=== PATIENT | male | born 1945 | race Caucasian/White ===

== ENCOUNTER → 2024-07-04 16:30 | Emergency (ER) | payer MEDICARE, OTHER, SELFPAY ==
[2024-07-04 16:32] VITALS: BP 104/68
[2024-07-04 17:01] LABS: % Basophils 0.5 % (0-2); % Immature Granulocytes 0.2 % (0-0.5); % Lymphocytes 23.6 % (20.5-51.1); % Neutrophils 61.7 % (42.2-75.2); Absolute Eosinophils 0.3 10^3/uL (0-0.7); Absolute Lymphocytes 1.5 10^3/uL (1.2-3.4); Absolute Monocytes 0.6 10^3/uL (0.1-0.6); Absolute Neutrophils 3.9 10^3/uL (1.4-6.5); Hematocrit 39.4 % (39.0-52.0); Hemoglobin 12.9 g/dL (13.0-18.0); Mean Corp Hgb Conc. 32.7 g/dL (33.0-37.0); Mean Corpuscular Volume 100.8 fL (80.0-94.0); Mean Platelet Volume 9.6 fL (7.4-10.4); Nucleated Red Blood Cells % 0 % (-); Platelet Count 199 10^3/uL (130-400); Red Blood Cell Count 3.91 10^6/uL (4.70-6.10); Red Cell Dist. Width 13.2 % (11.5-14.5); White Blood Cell Count 6.2 10^3/uL (4.8-10.8)
[2024-07-04 17:28] LABS: ALT (SGPT) 30 U/L (0-50); AST (SGOT) 57 U/L (17-59); Albumin 3.8 g/dl (3.5-5.0); Alkaline Phosphatase 68 U/L (38-126); Blood Urea Nitrogen 19 mg/dl (9-20); Calcium 9.3 mg/dl (8.4-10.2); Carbon Dioxide 27 mmol/L (22-30); Chloride 103 mmol/L (98-107); Glucose 101 mg/dl (70-99); Sodium 139 mmol/L (135-145); Total Bilirubin 1.6 mg/dl (0.2-1.3); Total Protein 6.2 g/dl (6.3-8.2); eGFR > 60.00
== END | disposition left against medical advice (07) ==
LOC: EMR 16:30
PROVIDERS: EMERGENCY PHYSICIAN Emergency Medicine
DX: R53.1 Weakness (principal); R60.0 Localized edema; Z53.21 Procedure and treatment not carried out due to patient leaving prior to being seen by health care provider; F03.90 Unspecified dementia, unspecified severity, without behavioral disturbance, psychotic disturbance, mood disturbance, and anxiety; R29.6 Repeated falls
CPT/HCPCS: 99281; 80053; 85025

== ENCOUNTER 2024-12-19 11:58 | Inpatient (IN) | payer MEDICARE, OTHER, SELFPAY ==
[2024-12-17 19:22] VITALS: BP 115/70
[2024-12-17 19:40] VITALS: BMI 25.0
--- NOTE | 2024-12-17 19:48 | EDRN ---
Pt says he is here because his sent him. Pt does not know why he is here. Pt knows he is in the hospital but does not know month/year. Pt denies pain, feeling ill. Pt offers no complaints.
--- NOTE | 2024-12-17 19:52 | ED.GENMED ---
History of Present Illness
General
Chief Complaint: Urinary Symptoms
Time Seen by Provider: 12/17/24 19:39
History of Present Illness
History of Present Illness:
Patient is a 79-year-old man with history dementia, atrial fibrillation, hypertension, hyperlipidemia presenting to the emergency department with weakness urinary incontinence. Patient unable to provide any history given his dementia. I did
attempt to call patient's however unable to be reached. Per medics the call was for increased weakness and urinary incontinence and necrosis behind the right ear.
Past History
Past History
ED Past Medical History: Arrthythmia (Atrial fib), HTN, Hypercholesterolemia and Other (Chronic back pain, hypertension, hyperlipidemia, spinal stenosis,)
ED Past Surgical History: Orthopedic (Multiple back surgeries)
Social History
Tobacco: Non-smoker
Alcohol: Daily (bourbon 2 shots)
Drug: None
Personal:
Living: with family
Family History
Family History: Negative Diabetes, Hypertension or Early CAD
Phy Exam
Physical Exam
Physical Exam:
GENERAL: in no acute distress
HEENT: Right ear helix with erythema, necrosis and purulent drainage and tenderness posteriorly above the mastoid, extraocular movements intact, moist oral mucosa
NECK: normal inspection
RESPIRATORY: no respiratory distress, clear to auscultation bilaterally
CARDIOVASCULAR: regular rate and rhythm
ABDOMEN/: soft, non-distended, non-tender to palpation, no rebound or guarding
EXTREMITIES: non-tender, no edema/swelling
NEUROLOGIC: awake and alert, oriented x 1, moves all extremities
SKIN: warm
Course
Orders/Labs/Results
Orders:
Orders
12/17/24 19:49
CT Temporal-iac W/ Iv Contrast Urgent
Comment:
Reason For Exam: necrotic helix with tenderness to mastoid bone
12/17/24 19:52
Electrocardiogram (*1) Urgent
Reason for Study: Fatigue / Weakness
EKG- Treatment ONCE
12/17/24 19:59
Complete Blood Count/With Diff Urgent
Comprehensive Metabolic Panel Urgent
12/17/24 20:23
Urinalysis Reflex To Culture Urgent
Date Specimen was Collected: 12/17/24
Time Specimen was Collected: 20:22
Urine Microscopic Reflex Cult Urgent
Urine Culture Urgent
PARRISH Source: U
Specimen Description:
Date Specimen was Collected: 12/17/24
Time Specimen was Collected: 20:22
12/17/24 22:29
Piperacillin/Tazo 4.5 Gram [Zosyn] 4.5 gram in 100 ml IV NOW
12/17/24 23:00
Flush (0.9% Sodium Chloride) [Flush (Nss)] See Dose Instructions IV PER PROTOCOL
Abnormal Lab Results
12/17/24 12/17/24
19:59 20:23
RBC 4.01 L 10^6/uL
(4.70-6.10)
MCV 99.0 H fL
(80.0-94.0)
MCH 33.9 H pg
(27.0-31.0)
Absolute Monos (auto) 0.7 H 10^3/uL
(0.1-0.6)
Total Protein 6.0 L g/dl
(6.3-8.2)
Urine Nitrite (Reflex) Positive A
(Negative)
Leukocyte Esterase Rfl 1+ A
(Negative)
Urine WBC (Reflex) 11-15 A /HPF
(0-5)
Urine Bacteria (Reflex) Many A
(Negative)
12/17/24 19:59
12/17/24 19:59
Vital Signs
Initial and Last Documented VS:
Initial Vital Signs
Temp Pulse Resp BP Pulse Ox
98.2 F 70 18 115/70 100
12/17/24 19:22 12/17/24 19:22 12/17/24 19:22 12/17/24 19:22 12/17/24 19:22
Last Documented Vital Signs
Temp Pulse Resp BP Pulse Ox
98.2 F 61 12 119/82 100
12/17/24 19:22 12/17/24 22:00 12/17/24 22:00 12/17/24 22:00 12/17/24 19:22
MDM/Problems Addressed
Differential Diagnosis Includes:
Patient is a 79-year-old male with history of dementia presenting to the emergency department weakness urinary incontinence and necrotic right ear. Vitals are notable for being afebrile. On exam patient does have necrosis and purulent drainage of
the helix of the right ear with some tenderness to the just above the mastoid. Abdomen soft benign nontender. He is not have any neurodeficits. Differential consists of malignant otitis externa, mastoiditis, malginancy uti, metabolic derangments.
Will obtain blood work EKG urinalysis and CT scan IAC. Initially placed with IV contrast after talking to radiology we can do it without.
*Critical Care Note
Total Time (30-74mins, 75-104mins- exclusive of procedures): Not Applicable
Update Note
Update Note:
Urine does appear infected. Patient does not have a white count and is afebrile. CT scan preliminary noted.
Will give zosyn. Discussed with hospitalist who excepted patient to their service. Discussed wt ENT who states likely malignancy and will see tomorrow in consult.
ED Attending Note
-
Portions of this chart may have been created with voice recognition software.� Occasional wrong word or��sound alike� substitutions may have occurred due to the inherent limitations of voice recognition software.
Discharge Plan
Departure
Patient Disposition: Admit
Date of Disposition: 12/17/24
Time of Disposition: 22:33
Presentation/result/management discussed w/ accepting MD/DO: Hospitalist
Discharge Problem:
Acute malignant otitis externa of right ear, Acute UTI
Prescriptions:
No Action
Eliquis 5 MG tablet
5 mg PO BID
metoprolol succinate 50 MG tablet extended release 24 hr
100 mg PO DAILY
simvastatin 80 MG tablet
80 mg PO DAILY
furosemide 20 MG tablet
20 mg PO DAILY
Centrum Silver Men 300-600-300 mcg Tablet
1 tab PO DAILY
tramadol 50 mg Tablet
100 mg PO .Q4-6HPRN PRN (Reason: moderate pain)
Rx Instructions:
take this OR vicodin
oxycodone-acetaminophen [Percocet] 5-325 mg Tablet
1 tab PO DAILYPRN PRN (Reason: severe pain)
cyanocobalamin (vitamin B-12) 1,000 MCG tablet
1,000 mcg PO DAILY
hydrocodone-acetaminophen 5-300 mg Tablet
1 - 2 tab PO Q4HPRN PRN (Reason: pain)
naproxen sodium [Aleve] 220 mg Tablet
440 mg PO DAILYPRN PRN (Reason: with tramadol for pain)
mirabegron [Myrbetriq] 50 mg Tablet Extended Release 24 Hr
50 mg PO DAILY
Referrals:
Jr Mcintosh Jr., DO [Family Provider, Family Practice]
Interventions
Interventions:
*Risk Screen - Suicide Last Done: 12/17/24 19:39
*General Assessment Last Done: 12/17/24 19:39
*Neglect/Abuse Screening Last Done: 12/17/24 19:39
*ED- Fall Risk Assessment Last Done: 12/17/24 20:09
ED- Cardiac Assessment Last Done: 12/17/24 19:52
ED-Male Genitourinary Assessment Last Done: 12/17/24 20:04
ED- Neurological Assessment Last Done: 12/17/24 19:52
ED- Pulmonary Assessment Last Done: 12/17/24 19:52
Discharge Date and Time
Print Language: ANDORRAN
[2024-12-17 20:00] VITALS: BP 101/67
--- NOTE | 2024-12-17 20:04 | EDRN ---
Pt's says he has a bad back (4 surgeries) and he walks with cane/walker but he does not walk far and often with her assistance. Pt incontinent usually. Last two days, pt has been sleeping a lot more than usual. Pt spends afternoons in a
recliner and has been getting PT/OT at home. Tonight, it took 2 hours to try and get pt out of the chair, pt unable to follow commands and did not understand what she was saying to him. says she gave up and called 911. She reports EMS had
difficulty getting him out of the chair. Pt has been 'playing with his eyes' all week so she thought he might have an eye infection. No fevers. Pt had bath yesterday and says his bp was normal. adds pt gets 'foggier' as the day goes on
and late evening 'is not good.'
[2024-12-17 20:12] LABS: % Basophils 0.4 % (0-2); % Eosinophils 2.7 % (0-6); % Immature Granulocytes 0.3 % (0-0.5); % Lymphocytes 25.7 % (20.5-51.1); % Monocytes 9.3 % (1.7-9.3); % Neutrophils 61.6 % (42.2-75.2); Absolute Eosinophils 0.2 10^3/uL (0-0.7); Absolute Lymphocytes 1.8 10^3/uL (1.2-3.4); Absolute Monocytes 0.7 10^3/uL (0.1-0.6); Absolute Neutrophils 4.3 10^3/uL (1.4-6.5); Hematocrit 39.7 % (39.0-52.0); Hemoglobin 13.6 g/dL (13.0-18.0); Mean Corp Hgb Conc. 34.3 g/dL (33.0-37.0); Mean Corpuscular Hgb 33.9 pg (27.0-31.0); Mean Platelet Volume 9.5 fL (7.4-10.4); Nucleated Red Blood Cells % 0 % (-); Platelet Count 218 10^3/uL (130-400); Red Blood Cell Count 4.01 10^6/uL (4.70-6.10); Red Cell Dist. Width 13.4 % (11.5-14.5)
[2024-12-17 20:32] LABS: Urine Albumin Negative (Neg - Trace); Urine Bilirubin Negative (Negative); Urine Character Clear (Clear); Urine Color Yellow; Urine Glucose Negative (Negative); Urine Ketone Negative (Negative); Urine Leukocyte 1+ (Negative); Urine Nitrite Positive (Negative); Urine Occult Blood Negative (Negative); Urine Specific Gravity 1.015 (<1.030); Urine Urobilinogen 1+ (Neg - 1+)
[2024-12-17 20:37] LABS: ALT (SGPT) 24 U/L (0-50); AST (SGOT) 31 U/L (17-59); Albumin 3.6 g/dl (3.5-5.0); Alkaline Phosphatase 77 U/L (38-126); Blood Urea Nitrogen 15 mg/dl (9-20); Calcium 9.5 mg/dl (8.4-10.2); Carbon Dioxide 29 mmol/L (22-30); Chloride 106 mmol/L (98-107); Estimated Creatinine Clearance 71 ml/min; Glucose 95 mg/dl (70-99); Potassium 3.9 mmol/L (3.5-5.1); Sodium 140 mmol/L (135-145); Total Bilirubin 1.2 mg/dl (0.2-1.3); eGFR > 60.00
[2024-12-17 21:00] VITALS: BP 126/83
[2024-12-17 21:00] LABS: Urine Bacteria Many (Negative); Urine Hyaline Cast 0-2 /LPF (0-2); Urine Red Blood Cell 0-2 /HPF (0-2); Urine Squamous Cell 0-2 /LPF (Few)
[2024-12-17 21:30] VITALS: BP 125/82
[2024-12-17 22:00] VITALS: BP 119/82
[2024-12-17] MEDS: ZOSYN 100 IV (22:41)
[2024-12-17 23:00] VITALS: BP 116/79
--- NOTE | 2024-12-17 23:11 | HPS.HSE ---
Family Physician
-
Family Physician: Jr Mcintosh
Chief Complaint
-
Generalized weakness and urinary incontinence
History of Present Illness
Patient is an 79-year-old male with past medical history significant for dementia, atrial fibrillation on anticoagulation, hypertension, hyperlipidemia, cellulitis, chronic back pain who presents to the emergency department secondary to generalized
weakness and urinary incontinence. He has a history of urinary incontinence and typically wears pull-ups at home. He gets around with the help of his , using a walker, however this morning when he woke up, was more weak than typical, unable to
get up out of bed due to weakness. There is also concern for what they are calling necrosis behind the right ear, that has apparently been worsening over the past several years. The family's primary drafter electrical is the patient's , and she was
unsure how long the right ear purulence has been there, likely since 2019 or 2020. The family thought it was related to the patient wearing masks during COVID. The ENT physician was consulted through the emergency department who reviewed photos of
the ear, and said this is likely cancer, not necrosis nor infection. He is recommending a biopsy and will see the patient in the hospital tomorrow. The patient is being admitted to the hospital for generalized weakness and UTI.
The patient is a poor historian secondary to dementia.
ED treatment IV Zosyn
WBC 7.0, urinalysis positive for nitrites 1+ leukocyte esterase 11-15 WBCs and many bacteria, BMP unremarkable
Temporal bone CAT scan performed in the emergency department is pending official report. The ED physician said that there is a preliminary read suspicious for malignant otitis externa and no mastoid air cell opacification. The ENT physician
looking at the picture suggest that this is more likely malignancy.
Medical History
Past Medical History
Past Medical History: Reports Other ( atrial fibrillation on Eliquis, hypertension, hyperlipidemia, chronic back pain, spinal stenosis)
Past Surgical History: Reports None
Social History
Tobacco: Non-smoker
Alcohol: Daily
Drug: None
Family History
Family History: Not pertinent
Allergies / Home Medications
Allergies reflects when Allergies were last updated in [employer].
Home Medications with original date entered in [employer]
Allergy/Medication List:
Allergies
Allergy/AdvReac Type Severity Reaction Status Date / Time
onion AdvReac Mild Vomiting Verified 12/17/24 19:41
shellfish derived AdvReac Vomiting Verified 12/17/24 19:41
Home Medications
apixaban 5 mg tablet (Eliquis) 5 mg PO BID Blood clot prevention/tx 09/30/17
Held on 01/23/23. Instructions: Resume on 01/26/23. Resume Eliquis Thursday01/26/2023
furosemide 20 mg tablet 20 mg PO DAILY Fluid retention/Swelling 04/25/21
metoprolol succinate 50 mg tablet,extended release 24 hr 100 mg PO DAILY Blood pressure 04/25/21
simvastatin 80 mg tablet 80 mg PO DAILY High cholesterol 04/25/21
oxycodone-acetaminophen 5 mg-325 mg tablet (Percocet) 1 tab PO DAILYPRN PRN severe pain 11/14/22
tramadol 50 mg tablet 100 mg PO .Q4-6HPRN PRN moderate pain 11/14/22
rlmrzdqf-ki-bgqmy 300 mcg-K 60 mcg-lycop 600 mcg-lutein 300 mcg tablet (Centrum Silver Men) 1 tab PO DAILY Supplement 12/08/22
cyanocobalamin (vitamin B-12) 1,000 mcg tablet 1,000 mcg PO DAILY Supplement 12/09/22
hydrocodone 5 mg-acetaminophen 300 mg tablet 1 - 2 tab PO Q4HPRN PRN pain 01/21/23
mirabegron 50 mg tablet,extended release 24 hr (Myrbetriq) 50 mg PO DAILY 12/17/24
naproxen sodium 220 mg tablet (Aleve) 440 mg PO DAILYPRN PRN with tramadol for pain 12/17/24
Review of Systems
-
A 12 point ROS was completed and negative except as noted: Yes
Physical Exam
Vital Signs
Vital Signs
Temp Pulse Resp BP Pulse Ox
98.2 F 74 13 116/79 100
12/17/24 19:22 12/17/24 23:00 12/17/24 23:00 12/17/24 23:00 12/17/24 19:22
Physical Exam
General: Appears Chronically Ill
HEENT: Other ( right ear has necrotic tissue posteriorly with yellow purulent, desiccated tissue, without surrounding cellulitis )
Respiratory: Clear
Cardiac: S1/S2 and Irregular Rhythm
GI: Soft, Non Tender and Non Distended
Musculoskeletal: No Clubbing, No Cyanosis and No Edema
Skin: Warm and Dry
Neuro: Awake and Other (Dementia, unable to answer questions though alert, eyes open to voice)
Psych: Calm
Laboratory Results
-
12/17/24 19:59
12/17/24 19:59
Laboratory Results
Total Bilirubin 1.2 mg/dl (0.2-1.3) 12/17/24 19:59
AST 31 U/L (17-59) 12/17/24 19:59
ALT 24 U/L (0-50) 12/17/24 19:59
Alkaline Phosphatase 77 U/L (38-126) 12/17/24 19:59
Data Reviewed
-
CT Scan: Report Reviewed by me (CT temporal as per below)
Medical Tests (Nuc Med, Echo, EKG etc): Image Personally Visualized and interpreted (EKG per below) and Report Reviewed by me
Lab Data: Labs Reviewed by me
Impression/Plan
-
IMPRESSION:Patient is an 79-year-old male with past medical history significant for dementia, atrial fibrillation on anticoagulation, hypertension, hyperlipidemia, cellulitis, chronic back pain who presents to the emergency department secondary to
generalized weakness and urinary incontinence. There is also concern for what they are calling necrosis behind the right ear, that has apparently been worsening over the past several years. The ENT physician was consulted through the emergency
department who reviewed photos of the ear, and said this is likely cancer. He is recommending a biopsy and will see the patient in the hospital tomorrow. The patient is being admitted to the hospital for generalized weakness and UTI.
The patient is a poor historian secondary to dementia.
ED treatment IV Zosyn
WBC 7.0, urinalysis positive for nitrites 1+ leukocyte esterase 11-15 WBCs and many bacteria, BMP unremarkable
Temporal bone CAT scan performed in the emergency department is pending official report. The ED physician said preliminary read suspicious for malignant otitis externa and no mastoid air cell opacification. The ENT physician looking at the
photograph of the ear and the CT scan suggest that this is likely malignancy.
# Generalized weakness likely secondary to acute cystitis/urinary tract infection and urinary incontinence
-Admit the patient as observation level of care on medical surgical unit
-Will treat with IV Rocephin
-Urine culture is pending
-Physical therapy evaluation
-bladder scan protocol
# Right ear likely malignancy causing necrotic and desiccated tissue, without evidence for surrounding cellulitis
-ENT consultation appreciated, recommendation is for biopsy
# Atrial fibrillation on Eliquis, patient is hemodynamically stable
- EKG with atrial fibrillation w junctional pacemaker w PVCs, LAD, RBBB, unchanged from December 2022
-continue home Eliquis & BB
# HTN, essential
# Hyperlipidemia
# Chronic back pain
-Spinal stenosis
#Dementia
DVT proph- cont Eliquis
DNR per disucssion with patient's
[2024-12-18 00:13] VITALS: BP 133/91
[2024-12-18 02:05] VITALS: BP 109/70; BMI 23.9
--- NOTE | 2024-12-18 02:14 | PTCARENOTE ---
Pt admitted to rm 339-1. Arrived at 1400 from ED via stretcher - pulled over to bed from stretcher. Pt alert, oriented only to self. Fearful turning in bed for care. VSS. Callous noted to L heel, R ear lesion present. Pt able to answer yes/no, slow
to respond at times. Bed alarm placed.
[2024-12-18 02:45] VITALS: BMI 23.9
[2024-12-18 05:45] LABS: % Basophils 0.7 % (0-2); % Eosinophils 2.9 % (0-6); % Immature Granulocytes 0.2 % (0-0.5); % Lymphocytes 29.2 % (20.5-51.1); % Monocytes 10.3 % (1.7-9.3); % Neutrophils 56.7 % (42.2-75.2); Absolute Eosinophils 0.2 10^3/uL (0-0.7); Absolute Lymphocytes 1.7 10^3/uL (1.2-3.4); Absolute Monocytes 0.6 10^3/uL (0.1-0.6); Absolute Neutrophils 3.4 10^3/uL (1.4-6.5); Hematocrit 43.5 % (39.0-52.0); Hemoglobin 14.5 g/dL (13.0-18.0); Mean Corp Hgb Conc. 33.3 g/dL (33.0-37.0); Mean Corpuscular Volume 99.1 fL (80.0-94.0); Mean Platelet Volume 9.9 fL (7.4-10.4); Nucleated Red Blood Cells % 0 % (-); Platelet Count 228 10^3/uL (130-400); Red Blood Cell Count 4.39 10^6/uL (4.70-6.10); Red Cell Dist. Width 13.4 % (11.5-14.5); White Blood Cell Count 5.9 10^3/uL (4.8-10.8)
[2024-12-18] MEDS: STERILE WATER FOR INJECTION 10 ML IV (05:56)
[2024-12-18] MEDS: ROCEPHIN 1000 MG IV (05:56)
[2024-12-18 07:30] VITALS: BP 122/80
[2024-12-18] MEDS: VITAMIN B-12 1000 MCG PO (08:30)
[2024-12-18] MEDS: ELIQUIS 5 MG PO ×2 (08:30→20:08)
[2024-12-18] MEDS: THERAGRAN 1 TABLET PO (08:30)
[2024-12-18] MEDS: MYRBETRIQ EXTENDED RELEASE 50 MG PO (08:31)
[2024-12-18] MEDS: LASIX 20 MG PO (08:31)
[2024-12-18] MEDS: TOPROL XL 100 MG PO (08:33)
[2024-12-18] MEDS: LIPITOR 40 MG PO (08:33)
[2024-12-18 09:52] VITALS: BP 132/98; PULSE 76; O2SAT 98
--- NOTE | 2024-12-18 10:17 | W.PN.HOSP.TC ---
Today's Communication/Plan
-
see PN
Assessment / Plan
Assessment / Plan
79yo M with PMHx of dementia, Afib on Eliquis, HTN, HLD, chronic back pain brought to ED by EMS since called for ongoing urinary retention. Found significant tissue destruction of R ear that as per prelim ENT eval - might be a cancer. CT head
suggesting cellulitis and R necrotizing otitis externa and 1.3 focal erosion of R mastoid with possibility of osteitis or osteomyelitis. ALso concern for UTI with urinary incontinence.
Patient is significantly demented and confused when seen on the second day after admission
As per - patient cognition and urinary incontinence started to getting progressively worse for past 6 months and on the day of admission he became significantly weaker, so called EMS
A/P:
#Possible UTI with urinary incontinence with Hx of overactive bladder
cont Myrbetriq
US renal
Cont Abx
pending Ucx
#R ear tissue destruction, possible cellulitis with acute OM with necrotizing otitis externa vs cancer with osteitis
has lesion for years
Vanco/Zosyn
ENT consult: might need biopsy, hod eliquis
CRP/ESR/Procalcitonin
#Dementia, unspecified
#Essential HTN
#Afib, permanent
#B12 deficiency
#Chronic back pain
cont home meds
DVT ppx SCDs
DNR/DNI
I have spent at least 59min reviewing chart, test results, communication with consultants, family and providing direct patient care
Anticipated Discharge: 24 - 48 hours
Subjective/Interval History
-
Date of Service: December 18, 2024
Objective Data
-
Labs:
Laboratory Results
12/18/24
05:06
WBC 5.9
Hgb 14.5
Hct 43.5
Plt Count 228
Vital Signs:
Vital Signs
Temp Pulse Resp BP Pulse Ox
97.3 F 86 16 122/80 97
12/18/24 07:30 12/18/24 07:30 12/18/24 07:30 12/18/24 07:30 12/18/24 08:00
Review of Systems
-
Unable to obtain full review of systems at this time due to: Dementia
Physical Exam
-
Respiratory: Clear to Auscultation
Cardiac: Irregular Rhythm
GI: Soft, Nontender and Nondistended
Skin: Other (significant tissue loss over R auricle )
Neuro: Awake and Alert
Psych: Confused and Apparent Dementia
[2024-12-18 10:58] LABS: Erythrocyte Sed Rate 7 mm/hour (0-20)
[2024-12-18 10:59] LABS: Procalcitonin < 0.05 ng/ml (0.0-0.25)
[2024-12-18 11:02] LABS: C-Reactive Protein < 5.00 mg/L (0.0-10.00)
--- NOTE | 2024-12-18 11:36 | PHA.VAN.IN ---
Assessment
- Assessment
Renal Function: Appears similar to baseline
Maximum Temperature: 98.9
Minimum Temperature: 97.3
Concomitant Antimicrobials: Piperacillin-tazobactam
- Previous Dosing Experience
Previous Regimen: Vanc 1250mg IV q12h
Date of Regimen: 04/26/21
Provided Trough of: 10
Provided AUC of: 357
Patient's SCR is: Similar to previous dosing experience
Patient's weight is: Decreased compared to previous dosing experience
AUC Dosing Plan
- Dosing Variables
Dosing Weight (kg): 79.9
Dosing CrCl (ml/min): 71
Vd coefficient (L/kg): 0.7
- Empiric Dosing
Initial / Loading Dose: Vanc 2000mg--administration pending
Maintenance Regimen: Vanc 750mg IV q12h. Begin 12/19 at 0600
Estimated AUC (mcg*h/mL): 442.53
Estimated Peak (mcg*h/mL): 25.41
Estimated Trough (mcg/ml): 12.78
Estimated Half Life (H): 11.1
- Monitoring
No levels ordered at this time: Consider levels after 12/20 1800 dose
Pharmacokinetics Vancomycin I
- -
Patient Age: 79
Patient Sex: Male
Vancomycin Day #: 1
Indication: [facility]
Requesting Provider: Janet
Height / Weight:
Height 6 ft
Actual Weight 79.917 kg
IBW in k.6
Adjusted BW in k.5
- Vital Signs / Lab Results
Temp Pulse Resp BP Pulse Ox
97.3 F 86 16 122/80 97
12/18/24 07:30 12/18/24 07:30 12/18/24 07:30 12/18/24 07:30 12/18/24 08:00
Lab Results - Hematology
06/14/25 06/15/25
19:59 05:06
WBC 7.0 5.9
Lab Results - Chemistry
12/17/24
19:59
BUN 15
Creatinine 0.9
Estimated Creat Clear 71
Albumin 3.6
Lab Results - Urine
12/17/24
20:23
Urine Nitrite (Reflex) Positive A
Leukocyte Esterase Rfl 1+ A
Urine WBC (Reflex) 11-15 A
Ur Squamous Epith Cells 0-2
Urine Bacteria (Reflex) Many A
[2024-12-18] MEDS: ZOSYN 50 IV ×2 (11:58→17:48)
--- NOTE | 2024-12-18 12:10 | CON.MD ---
Consultation - Medical
-
Pt seen and full consult dictated.
Pt is admitted with UTI but has also had a lesion of the right ear gradually eroding that ear. It has been present for at least [address] from lat night reviewed.
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
I have d/w patient and his and son.
We will have him f/u with me after UTI resolves for biopsy in the office.
--- NOTE | 2024-12-18 12:17 | W.PN.UPDATE ---
Update Note
Progress Note Update
ESR/CRP/Procal WNL
ENT also not concerned for infection, possible BCC
Will stop ebony Higginbotham pending Ucx
[2024-12-18 15:45] VITALS: BP 114/69
--- NOTE | 2024-12-18 16:34 | CM ---
LM with for IA .No call back. Grubbs letter copy in room.
[2024-12-18 23:00] VITALS: BP 94/58
[2024-12-19] MEDS: ZOSYN 50 IV ×4 (01:50→17:18)
[2024-12-19 05:41] LABS: % Basophils 0.1 % (0-2); % Eosinophils 0.1 % (0-6); % Immature Granulocytes 0.4 % (0-0.5); % Monocytes 11.5 % (1.7-9.3); % Neutrophils 69.9 % (42.2-75.2); Absolute Lymphocytes 1.6 10^3/uL (1.2-3.4); Absolute Neutrophils 6.3 10^3/uL (1.4-6.5); Hematocrit 42.5 % (39.0-52.0); Hemoglobin 14.2 g/dL (13.0-18.0); Mean Corp Hgb Conc. 33.4 g/dL (33.0-37.0); Mean Corpuscular Hgb 33.1 pg (27.0-31.0); Mean Corpuscular Volume 99.1 fL (80.0-94.0); Mean Platelet Volume 9.9 fL (7.4-10.4); Nucleated Red Blood Cells % 0 % (-); Platelet Count 234 10^3/uL (130-400); Red Blood Cell Count 4.29 10^6/uL (4.70-6.10); Red Cell Dist. Width 13.5 % (11.5-14.5); White Blood Cell Count 9.1 10^3/uL (4.8-10.8)
[2024-12-19 06:00] VITALS: BMI 23.5
[2024-12-19 06:05] LABS: ALT (SGPT) 22 U/L (0-50); AST (SGOT) 26 U/L (17-59); Albumin 3.6 g/dl (3.5-5.0); Alkaline Phosphatase 65 U/L (38-126); Blood Urea Nitrogen 16 mg/dl (9-20); Calcium 9.5 mg/dl (8.4-10.2); Carbon Dioxide 28 mmol/L (22-30); Chloride 107 mmol/L (98-107); Estimated Creatinine Clearance 64 ml/min; Glucose 110 mg/dl (70-99); Potassium 3.9 mmol/L (3.5-5.1); Sodium 142 mmol/L (135-145); Total Bilirubin 2.6 mg/dl (0.2-1.3); eGFR > 60.00
[2024-12-19] MEDS: MYRBETRIQ EXTENDED RELEASE 50 MG PO (07:28)
[2024-12-19] MEDS: THERAGRAN 1 TABLET PO (07:29)
[2024-12-19] MEDS: VITAMIN B-12 1000 MCG PO (07:29)
[2024-12-19] MEDS: ELIQUIS 5 MG PO ×2 (07:29→20:08)
[2024-12-19] MEDS: LASIX 20 MG PO (07:29)
[2024-12-19] MEDS: LIPITOR 40 MG PO (07:29)
[2024-12-19] MEDS: TOPROL XL 100 MG PO (07:30)
[2024-12-19 08:01] VITALS: BP 115/74
--- NOTE | 2024-12-19 08:16 | W.PN.HOSP.TC ---
Today's Communication/Plan
-
Left side of lips transient drooping? CT Head ordered, appreciate neurology
Continue Zosyn, follow urine cultures
Assessment / Plan
Assessment / Plan
Physical Exam
General: Not in acute distress
Respiratory: Clear to Auscultation Bilaterally
Cardiac: S1 and S2. Irregular Rhythm
GI: Soft, Nontender and Nondistended. Positive bowel sounds.
Skin: Other (significant tissue loss over R auricle )
Neuro: Awake and Alert
Psych: Confused and Apparent Dementia
Assessment/Plan
79yo M with PMHx of dementia, Afib on Eliquis, HTN, HLD, chronic back pain brought to ED by EMS since called for ongoing urinary retention. Found significant tissue destruction of R ear that as per prelim ENT eval - might be a cancer. CT head
suggested cellulitis and R necrotizing otitis externa and 1.3 focal erosion of R mastoid with possibility of osteitis or osteomyelitis. ALso concern for UTI with urinary incontinence.
Patient is significantly demented and confused when seen on the second day after admission. As per - patient cognition and urinary incontinence started to getting progressively worse for past 6 months and on the day of admission he became
significantly weaker, so called EMS
#Possible UTI with urinary incontinence with Hx of overactive bladder
#Chronic Urinary Retention
cont Myrbetriq
Renal ultrasound with mild chronic bilateral renal disease, mild diffuse thickening and trabeculation of the urinary bladder wall (either cystitis or chronic urinary bladder outlet obstruction).
Cont Abx for UTI
pending Ucx -- so far growing E. coli -- follow final sensitivities
#Possible Left Part of Lips Droop observed on 12/19/24
-CT Head ordered with no acute changes -- ventriculomegaly slightly out of proportion to cerebral sulcal prominence; reference measurements could suggest normal pressure hydrocephalus in the proper setting.
-Appreciate neurology consult
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
has lesion for years
Vanco previously stopped. Continue Zosyn for UTI as above.
ENT consult not concerned for infection, rather suspected to have basal cell carcinoma
CRP/ESR/Procalcitonin WNL
Follow-up with ENT outpatient for biopsy at which point we could consider surgical excision
Also follow-up with Dr. Jensen, a [facility]
#Dementia, unspecified
#Essential HTN
#Afib, permanent
#B12 deficiency
#Chronic back pain
cont home meds
DVT ppx SCDs. Eliquis.
DNR/DNI
Anticipated Discharge: 24 - 48 hours
Subjective/Interval History
-
Date of Service: December 19, 2024
Patient was seen and examined. His was present in his room at the time of patient encounter. Possible drooping of the left side of his lips.
Objective Data
-
Labs:
Laboratory Results
12/19/24
05:06
WBC 9.1
Hgb 14.2
Hct 42.5
Plt Count 234
Sodium 142
Potassium 3.9
Chloride 107
Carbon Dioxide 28
BUN 16
Creatinine 1.0
Glucose 110 H
Calcium 9.5
Total Bilirubin 2.6 H D
AST 26
ALT 22
Alkaline Phosphatase 65
Vital Signs:
Vital Signs
Temp Pulse Resp BP Pulse Ox
97.6 F 80 16 115/74 95
12/19/24 08:01 12/19/24 08:01 12/19/24 08:01 12/19/24 08:01 12/19/24 08:01
I&O
12/18/24 12/19/24 12/20/24
06:59 06:59 06:59
Intake Total 360 / 360
Balance 360 / 360
--- NOTE | 2024-12-19 09:54 | CM ---
Addendum entered by Aislinn Arce RN 12/19/24 16:34:
CHanged to inpatient IMM given explained signed on chart by .
PACC data given to .
SNF requested Marino Wright ,Billy Vanessa.
Original Note:
called me back and provided IA . Pt is alert awake confused patient who lives with his Sariah in a 2 story home with 2 step to enter and 16 steps to bed and bathroom. He is assisted all activities of daily living.He has had [facility] at
home for cognitive speech PT OT vehicle care specialist to shower.He has wc walkers cane.FULLER letter give explained to .
[facility] hx /[facility] history
Pharmacy [facility] [place]
PCP DR Mcintosh
PLAN Will need OT
[2024-12-19] MEDS: FLUSH (NSS) 2 FLUSH IV (11:19)
[2024-12-19 12:15] LABS: Glucose - Point of Care 82 mg/dl (70-99)
--- NOTE | 2024-12-19 12:24 | PTCARENOTE ---
pct Alfred Mckeon notified this nurse at 1210 that the pt had a facial droop. this nurse noted pt to have distinct L sided facial droop, strength equal b/l to upper and lower extremities, pt refused to smile or make facial expressions, pupils noted to be
1-2mm... difficult to assess reaction although pupils round b/l. BS 82, BP 133/74, HR 83, 97% on RA. pt notes that pt facial droop is new and that pt seems less alert then yesterday. Dr. Adrian notified urgently via tt at 1216, dr Adrian
arrived to the floor shortly after to evaluate pt and speak with .
--- NOTE | 2024-12-19 13:12 | CON.NEURO ---
Consultation
Order
Date of Consultation: 12/19/24
Requesting Provider: Amrit Adrian MD
Reason for Consult: R facial weakness
Neurology Consultation Note.
HPI: This is an 79-year-old man who presented to [facility] on 12/17/2024 with worsening of urinary incontinence. Neurology consultation was requested for an evaluation and management of right facial weakness.
The patient is unable to provide history.
ER VS: 115/70-94/58, 70, afebrile
CT head�generalized atrophy.
EKG: A-fib
PDMP: Not recently prescribed medication
Labs: Normal WBCs, glucose, sodium, creatinine, MCV�99.0, T. bili 1.2�2.6, normal ESR, CRP.
UA cx�E. Coli.
Temporal bone CT�severe asymmetric soft tissue edema and skin thickening in the right ear and surrounding soft, 1.3 cm focal erosion of the lateral cortex of the right mastoid air cells with a mild amount of periosteal reaction.
PMH: dementia, history of thoracic spinal stenosis, A-fib, HTN, DLP, overactive bladder, colonic diverticulosis, BPH, chronic back pain, L1 compression fracture, alcohol use disorder, ambulatory dysfunction
PSH: Cervical and lumbar laminectomies, open Wan repair left inguinal hernia with mesh
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 Non-smoker
FH: Not contributory to current presentation
All: Iodine
ROS: Negative for headache, dysphagia, chest pain, abdominal pain, change in vision.
General: Well developed. In no acute distress.
Cardio: Regular rate and rhythm without murmur. Extremities are without cyanosis or edema.
Neuro:
Mental Status: Alert, oriented to name only. Follows simple requests intermittently. No hemineglect.
Cranial Nerves: Pupils are equally round and reactive to light. EOMs full. BTT BL. No ptosis. No nystagmus. Mild right LMN CN VII palsy. Impaired hearing AU. The palate elevated well. SCMs and traps 5/5. Tongue midline. No dysarthria.
Motor: Normal bulk and tone. No pronator or arm drift. Moves lower extremities within bed symmetrically.
Reflexes: Bilateral grasp.
Sensory: Limited exam due to
Coordination: No tremors myoclonic movements
Gait: deferred
Assessment and Plan:
I. Mild right LMN CN VII palsy. Likely etiology - right mastoid air cells erosive process
II. PA A-Fib
III. Neurodegenerative/infectious encephalopathy.
- Continue Telemetry monitoring
- ENT follow-up
- Brain MRI with and without gadolinium
- DVT prophylaxis.
I personally reviewed all radiology and labs along with past medical records pertinent to current medical problems. Total time spent in patient care is 60 minutes.
Thank you for allowing us to participate in the care of this patient. We will continue to follow. Please do not hesitate to contact us with any questions or concerns.
Subjective/Objective
Subjective Data
Date of Service: December 19, 2024
Objective Data
Vital Signs
Temp Pulse Resp BP Pulse Ox
36.4 C 80 16 115/74 95
12/19/24 08:01 12/19/24 08:01 12/19/24 08:01 12/19/24 08:01 12/19/24 08:01
Lab Results
12/19/24 05:06
12/19/24 05:06
Sodium 142 mmol/L (135-145) 12/19/24 05:06
Potassium 3.9 mmol/L (3.5-5.1) 12/19/24 05:06
BUN 16 mg/dl (9-20) 12/19/24 05:06
Glucose 110 mg/dl (70-99) H 12/19/24 05:06
Calcium 9.5 mg/dl (8.4-10.2) 12/19/24 05:06
Patient Allergies
onion Adverse Reaction (Mild, Verified 12/17/24 19:41)
Vomiting
shellfish derived Adverse Reaction (Verified 12/17/24 19:41)
Vomiting
Medications
-
Active Medications
Generic Name Dose Route Start Last Admin
Trade Name Freq PRN Reason Stop Dose Admin
Apixaban 5 mg 12/18/24 08:00 12/19/24 07:29
Apixaban (Eliquis) 5 Mg Tablet PO 01/15/25 07:59 5 mg
BID NURY Administration
Atorvastatin Calcium 40 mg 12/18/24 08:00 12/19/24 07:29
Atorvastatin (Lipitor) 40 Mg Tablet PO 01/15/25 07:59 40 mg
DAILY NURY Administration
Bisacodyl 10 mg 12/18/24 02:11
Bisacodyl 10 Mg Rectal Suppository RECTAL 01/15/25 02:10
[id number] PRN
constipation
Cyanocobalamin 1,000 mcg 12/18/24 08:00 12/19/24 07:29
Cyanocobalamin 1,000 Mcg Tablet PO 01/15/25 07:59 1,000 mcg
DAILY NURY Administration
Furosemide 20 mg 12/18/24 08:00 12/19/24 07:29
Furosemide 20 Mg Tablet PO 01/15/25 07:59 20 mg
DAILY NURY Administration
Piperacillin Sod/Tazobactam Sod 3.375 gram in 50 mls @ 100 mls/hr 12/18/24 12:00 12/19/24 11:18
Zosyn IV 50 mls
Q6H NURY Administration
Metoprolol Succinate 100 mg 12/18/24 08:00 12/19/24 07:30
Metoprolol 100 Mg Extended Release Tablet PO 01/15/25 07:59 100 mg
DAILY NURY Administration
Mirabegron 50 mg 12/18/24 08:00 12/19/24 07:28
Mirabegron Extended Release 25 Mg Tab (Non Form) PO 01/15/25 07:59 50 mg
DAILY NURY Administration
Multivitamins Therapeutic 1 tablet 12/18/24 08:00 12/19/24 07:29
Multivitamin Tablet PO 01/15/25 07:59 1 tablet
DAILY NURY Administration
Polyethylene Glycol 17 grams 12/18/24 02:11
Polyethylene Glycol Powder 17 Grams Packet PO 01/15/25 02:10
DAILYPRN PRN
constipation
Senna/Docusate Sodium 1 tablet 12/18/24 02:11
Docusate W/Senna (Divina-Colace) Tablet PO 01/15/25 02:10
BIDPRN PRN
constipation
Sodium Chloride 0 flush 12/17/24 23:00 12/19/24 11:19
Sodium Chloride 0.9% (Flush) Syringe IV 01/14/25 22:59 2 flush
PER PROTOCOL NURY Administration
Tramadol HCl 100 mg 12/18/24 02:11
Tramadol Hcl 50 Mg Tablet PO 01/15/25 02:10
Q6HPRN PRN
moderate pain
Home Medications
�Medication �Instructions �Recorded
apixaban 5 mg tablet (Eliquis) 5 mg PO BID Blood clot 09/30/17
Held on 01/23/23. prevention/tx
Instructions: Resume on
01/26/23. Resume Eliquis
Thursday morning 01/26/2023
furosemide 20 mg tablet 20 mg PO DAILY Fluid 04/25/21
retention/Swelling
metoprolol succinate 50 mg 100 mg PO DAILY Blood pressure 04/25/21
tablet,extended release 24 hr
simvastatin 80 mg tablet 80 mg PO DAILY High cholesterol 04/25/21
oxycodone-acetaminophen 5 mg-325 1 tab PO DAILYPRN PRN severe pain 11/14/22
mg tablet (Percocet)
tramadol 50 mg tablet 100 mg PO .Q4-6HPRN PRN moderate 11/14/22
pain
vluabein-bp-qtreb 300 mcg-K 60 1 tab PO DAILY Supplement 12/08/22
mcg-lycop 600 mcg-lutein 300 mcg
tablet (Centrum Silver Men)
cyanocobalamin (vitamin B-12) 1,000 mcg PO DAILY Supplement 12/09/22
1,000 mcg tablet
hydrocodone 5 mg-acetaminophen 300 1 - 2 tab PO Q4HPRN PRN pain 01/21/23
mg tablet
mirabegron 50 mg tablet,extended 50 mg PO DAILY Urinary Issue 12/17/24
release 24 hr (Myrbetriq)
naproxen sodium 220 mg tablet 440 mg PO DAILYPRN PRN with 12/17/24
(Aleve) tramadol for pain
Vital Signs and Labs
-
Vital Signs and Labs:
Vital Signs
Temp Pulse Resp BP Pulse Ox
36.4 C 80 16 115/74 95
12/19/24 08:01 12/19/24 08:01 12/19/24 08:01 12/19/24 08:01 12/19/24 08:01
Lab Results
12/19/24 05:06
12/19/24 05:06
Sodium 142 mmol/L (135-145) 12/19/24 05:06
Potassium 3.9 mmol/L (3.5-5.1) 12/19/24 05:06
BUN 16 mg/dl (9-20) 12/19/24 05:06
Glucose 110 mg/dl (70-99) H 12/19/24 05:06
Calcium 9.5 mg/dl (8.4-10.2) 12/19/24 05:06
Medications
-
Medications:
Generic Name Dose Route Start Last Admin
Trade Name Freq PRN Reason Stop Dose Admin
Apixaban 5 mg 12/18/24 08:00 12/19/24 07:29
Apixaban (Eliquis) 5 Mg Tablet PO 01/15/25 07:59 5 mg
BID NURY Administration
Atorvastatin Calcium 40 mg 12/18/24 08:00 12/19/24 07:29
Atorvastatin (Lipitor) 40 Mg Tablet PO 01/15/25 07:59 40 mg
DAILY NURY Administration
Bisacodyl 10 mg 12/18/24 02:11
Bisacodyl 10 Mg Rectal Suppository RECTAL 01/15/25 02:10
[id number] PRN
constipation
Cyanocobalamin 1,000 mcg 12/18/24 08:00 12/19/24 07:29
Cyanocobalamin 1,000 Mcg Tablet PO 01/15/25 07:59 1,000 mcg
DAILY NURY Administration
Furosemide 20 mg 12/18/24 08:00 12/19/24 07:29
Furosemide 20 Mg Tablet PO 01/15/25 07:59 20 mg
DAILY NURY Administration
Piperacillin Sod/Tazobactam Sod 3.375 gram in 50 mls @ 100 mls/hr 12/18/24 12:00 12/19/24 11:18
Zosyn IV 50 mls
Q6H NURY Administration
Metoprolol Succinate 100 mg 12/18/24 08:00 12/19/24 07:30
Metoprolol 100 Mg Extended Release Tablet PO 01/15/25 07:59 100 mg
DAILY NURY Administration
Mirabegron 50 mg 12/18/24 08:00 12/19/24 07:28
Mirabegron Extended Release 25 Mg Tab (Non Form) PO 01/15/25 07:59 50 mg
DAILY NURY Administration
Multivitamins Therapeutic 1 tablet 12/18/24 08:00 12/19/24 07:29
Multivitamin Tablet PO 01/15/25 07:59 1 tablet
DAILY NURY Administration
Polyethylene Glycol 17 grams 12/18/24 02:11
Polyethylene Glycol Powder 17 Grams Packet PO 01/15/25 02:10
DAILYPRN PRN
constipation
Senna/Docusate Sodium 1 tablet 12/18/24 02:11
Docusate W/Senna (Divina-Colace) Tablet PO 01/15/25 02:10
BIDPRN PRN
constipation
Sodium Chloride 0 flush 12/17/24 23:00 12/19/24 11:19
Sodium Chloride 0.9% (Flush) Syringe IV 01/14/25 22:59 2 flush
PER PROTOCOL NURY Administration
Tramadol HCl 100 mg 12/18/24 02:11
Tramadol Hcl 50 Mg Tablet PO 01/15/25 02:10
Q6HPRN PRN
moderate pain
Home Medications
-
Home Medications
apixaban 5 mg tablet (Eliquis) 5 mg PO BID Blood clot prevention/tx 09/30/17
Held on 01/23/23. Instructions: Resume on 01/26/23. Resume Eliquis Thursday01/26/2023
furosemide 20 mg tablet 20 mg PO DAILY Fluid retention/Swelling 04/25/21
metoprolol succinate 50 mg tablet,extended release 24 hr 100 mg PO DAILY Blood pressure 04/25/21
simvastatin 80 mg tablet 80 mg PO DAILY High cholesterol 04/25/21
oxycodone-acetaminophen 5 mg-325 mg tablet (Percocet) 1 tab PO DAILYPRN PRN severe pain 11/14/22
tramadol 50 mg tablet 100 mg PO .Q4-6HPRN PRN moderate pain 11/14/22
edynhjer-te-dvpbd 300 mcg-K 60 mcg-lycop 600 mcg-lutein 300 mcg tablet (Centrum Silver Men) 1 tab PO DAILY Supplement 12/08/22
cyanocobalamin (vitamin B-12) 1,000 mcg tablet 1,000 mcg PO DAILY Supplement 12/09/22
hydrocodone 5 mg-acetaminophen 300 mg tablet 1 - 2 tab PO Q4HPRN PRN pain 01/21/23
mirabegron 50 mg tablet,extended release 24 hr (Myrbetriq) 50 mg PO DAILY Urinary Issue 12/17/24
naproxen sodium 220 mg tablet (Aleve) 440 mg PO DAILYPRN PRN with tramadol for pain 12/17/24
[2024-12-19 14:48] VITALS: BP 94/59
--- NOTE | 2024-12-19 20:43 | W.PN.UPDATE ---
Addendum entered and electronically signed by JAMAR Richmond 12/20/24 01:07:
CT head again negative for acte/subacute infarct
Original Note:
Update Note
Progress Note Update
2039 Asked by RN to see pt for worsening left facial droop. Not opening left eye.
Reviewing chart, pt admitted a few days ago with UTi and weakness. Apparently this afternoon was found to have left facial droop. Ct head done was negative for infarct. Neuro was consulted. Mri of brain ordered for am.
On eval pt had both eyes open. A definite left sided facial droop noted. PT has dementia for getting an accurate NIH is difficult. Will send for another Ct head for completeness. Pt not a candidate for TXA due to eliquis use (last dose 1999
tonight).
--- NOTE | 2024-12-19 21:55 | PTCARENOTE ---
patient was asked and offered hygiene, but refused. He stated he will do it in the morning.
[2024-12-19 23:00] VITALS: BP 121/71
--- NOTE | 2024-12-20 00:36 | PTCARENOTE ---
Informed by day shift RN Pt had new onset left sided facial droop. Hospitalist notified and symptoms seemed to improve. Head Ct performed and was negative. Upon this RN's shift assessment Pt showed significant left sided facial droop, and inability
to open left eye. Left pupil sluggish. BP 105/64 HR 68 T 97.6 O2 98% on room air. NIH score of 7. [employer] notified and new head Ct ordered. Ct still negative. Will continue to monitor and proform Q4 neuro checks.
[2024-12-20] MEDS: ZOSYN 50 IV ×3 (05:43→11:34)
[2024-12-20 06:53] LABS: Hemoglobin 14.5 g/dL (13.0-18.0); Mean Corp Hgb Conc. 33.7 g/dL (33.0-37.0); Mean Corpuscular Hgb 33.2 pg (27.0-31.0); Mean Corpuscular Volume 98.4 fL (80.0-94.0); Mean Platelet Volume 9.8 fL (7.4-10.4); Platelet Count 226 10^3/uL (130-400); Red Blood Cell Count 4.37 10^6/uL (4.70-6.10); Red Cell Dist. Width 13.5 % (11.5-14.5); White Blood Cell Count 7.8 10^3/uL (4.8-10.8)
[2024-12-20 07:06] VITALS: BP 130/85
[2024-12-20 07:06] LABS: ALT (SGPT) 22 U/L (0-50); AST (SGOT) 34 U/L (17-59); Albumin 3.6 g/dl (3.5-5.0); Alkaline Phosphatase 69 U/L (38-126); Blood Urea Nitrogen 16 mg/dl (9-20); Calcium 9.4 mg/dl (8.4-10.2); Carbon Dioxide 26 mmol/L (22-30); Chloride 108 mmol/L (98-107); Estimated Creatinine Clearance 64 ml/min; Glucose 88 mg/dl (70-99); Potassium 3.8 mmol/L (3.5-5.1); Sodium 143 mmol/L (135-145); eGFR > 60.00
[2024-12-20] MEDS: VITAMIN B-12 1000 MCG PO (07:44)
[2024-12-20] MEDS: ELIQUIS 5 MG PO ×2 (07:44→20:30)
[2024-12-20] MEDS: TOPROL XL 100 MG PO (07:44)
[2024-12-20] MEDS: MYRBETRIQ EXTENDED RELEASE 50 MG PO (07:45)
[2024-12-20] MEDS: LIPITOR 40 MG PO (07:45)
[2024-12-20] MEDS: LASIX 20 MG PO (07:45)
[2024-12-20] MEDS: THERAGRAN 1 TABLET PO (07:45)
[2024-12-20 08:00] VITALS: BMI 23.7
--- NOTE | 2024-12-20 08:10 | W.PN.HOSP.TC ---
Today's Communication/Plan
-
SNF bed pending
MRI unremarkable for stroke
Cefdinir for UTI
Assessment / Plan
Assessment / Plan
Physical Exam
General: Not in acute distress
Respiratory: Clear to Auscultation Bilaterally
Cardiac: S1 and S2. Irregular Rhythm
GI: Soft, Nontender and Nondistended. Positive bowel sounds.
Skin: Other (significant tissue loss over R auricle )
Neuro: Awake and Alert
Psych: Confused and Apparent Dementia
Assessment/Plan
79yo M with PMHx of dementia, Afib on Eliquis, HTN, HLD, chronic back pain brought to ED by EMS since called for ongoing urinary retention. Found significant tissue destruction of R ear that as per prelim ENT eval - might be a cancer. CT head
suggested cellulitis and R necrotizing otitis externa and 1.3 focal erosion of R mastoid with possibility of osteitis or osteomyelitis. ALso concern for UTI with urinary incontinence.
Patient is significantly demented and confused when seen on the second day after admission. As per - patient cognition and urinary incontinence started to getting progressively worse for past 6 months and on the day of admission he became
significantly weaker, so called EMS
#Possible UTI with urinary incontinence with Hx of overactive bladder
#Chronic Urinary Retention
Continue Myrbetriq
Renal ultrasound with mild chronic bilateral renal disease, mild diffuse thickening and trabeculation of the urinary bladder wall (either cystitis or chronic urinary bladder outlet obstruction).
Continue antibiotics for UTI
Urine culture with pansensitive E. coli -- changed Zosyn to Cefdinir
#Dementia with Acute Metabolic Encephalopathy
#Possible Left Part of Lips Droop observed on 12/19/24
-CT Head ordered with no acute changes -- ventriculomegaly slightly out of proportion to cerebral sulcal prominence; reference measurements could suggest normal pressure hydrocephalus in the proper setting.
-Appreciate neurology consult
-MRI with no acute stroke
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
has lesion for years
Vanco previously stopped. Zosyn also stopped.
ENT consult not concerned for infection, rather suspected to have basal cell carcinoma
CRP/ESR/Procalcitonin WNL
Follow-up with ENT outpatient for biopsy at which point we could consider surgical excision
Also follow-up with Dr. Jensen, a [facility]
#Dementia, unspecified
#Essential HTN
#Afib, permanent -- continue Eliquis
#B12 deficiency -- continue Vitamin B12 supplementation
#Chronic back pain
cont home meds
DVT ppx SCDs. Eliquis.
DNR/DNI
Anticipated Discharge: Within 24 hours
Subjective/Interval History
-
Date of Service: December 20, 2024
Patient was seen and examined. Overnight, it was noted that patient has a more noticeable left facial droop, which resolved as of this morning.
Objective Data
-
Labs:
Laboratory Results
12/20/24
06:24
WBC 7.8
Hgb 14.5
Hct 43.0
Plt Count 226
Sodium 143
Potassium 3.8
Chloride 108 H
Carbon Dioxide 26
BUN 16
Creatinine 1.0
Glucose 88
Calcium 9.4
Total Bilirubin 2.0 H
AST 34
ALT 22
Alkaline Phosphatase 69
Vital Signs:
Vital Signs
Temp Pulse Resp BP Pulse Ox
98.0 F 85 18 130/85 97
12/20/24 07:06 12/20/24 07:06 12/20/24 07:06 12/20/24 07:06 12/20/24 07:06
I&O
12/19/24 12/20/24 12/21/24
06:59 06:59 06:59
Intake Total 360 / 360 550 / 550
Balance 360 / 360 550 / 550
--- NOTE | 2024-12-20 10:06 | CM ---
Patient seen at bedside
[facility]
no pre-auth needed
PLAN: SNF, pending bed availability, when stable
[2024-12-20 10:33] VITALS: BP 128/73; PULSE 78
--- NOTE | 2024-12-20 13:19 | W.PN.NEURO.1 ---
Today's Communication / Plan
-
.
Subjective/Objective
Subjective Data
Date of Service: December 20, 2024
Neurology follow-up note
Mr. Child reports no complaints. He denies having ear pain, change in vision or swallowing.
Brain MRI w/wo timothy showed severe diffuse atrophy and no acute infarcts or enhancement.
PDMP: Not recently prescribed medication
Labs: Normal WBCs, glucose, sodium, creatinine, MCV�99.0, T. bili 1.2�2.6, normal ESR, CRP.
PMH: dementia, history of thoracic spinal stenosis, A-fib, HTN, DLP, overactive bladder, colonic diverticulosis, BPH, chronic back pain, L1 compression fracture, alcohol use disorder, ambulatory dysfunction
PSH: Cervical and lumbar laminectomies, open Wan repair left inguinal hernia with mesh
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
FH: Not contributory to current presentation
All: Iodine
ROS: Negative for headache, dysphagia, chest pain, abdominal pain, change in vision.
General: Well developed. In no acute distress.
Cardio: Regular rate and rhythm without murmur. Extremities are without cyanosis or edema.
Neuro:
Mental Status: Alert, oriented to name only. Follows simple requests intermittently. No hemineglect. Fluctuating mood
Cranial Nerves: Pupils are equally round and reactive to light. EOMs full. BTT BL. No ptosis. No nystagmus. Mild right LMN CN VII palsy. Impaired hearing AU. The palate elevated well. SCMs and traps 5/5. Tongue midline. No dysarthria.
Motor: Normal bulk and tone. No pronator or arm drift. Moves lower extremities within bed symmetrically.
Reflexes: Bilateral grasp.
Sensory: Limited exam due to
Coordination: No tremors myoclonic movements
Gait: deferred
Assessment and Plan:
I. Very mild right LMN CN VII palsy.
II. PA A-Fib
III. Neurodegenerative/infectious encephalopathy.
- Continue Telemetry monitoring
- ENT follow-up
- Continue Eliquis for stroke prevention.
- DVT prophylaxis.
- Please recall neurology services any questions or concerns
I personally reviewed all radiology and labs along with past medical records pertinent to current medical problems. Total time spent in patient care is 37 minutes.
Thank you for allowing us to participate in the care of this patient. Please do not hesitate to contact us with any questions or concerns.
Objective Data
Vital Signs
Temp Pulse Resp BP Pulse Ox
36.7 C 85 18 130/85 97
12/20/24 07:06 12/20/24 07:06 12/20/24 07:06 12/20/24 07:06 12/20/24 08:00
Lab Results
12/20/24 06:24
12/20/24 06:24
Sodium 143 mmol/L (135-145) 12/20/24 06:24
Potassium 3.8 mmol/L (3.5-5.1) 12/20/24 06:24
BUN 16 mg/dl (9-20) 12/20/24 06:24
Glucose 88 mg/dl (70-99) 12/20/24 06:24
Calcium 9.4 mg/dl (8.4-10.2) 12/20/24 06:24
Patient Allergies
onion Adverse Reaction (Mild, Verified 12/17/24 19:41)
Vomiting
shellfish derived Adverse Reaction (Verified 12/17/24 19:41)
Vomiting
Vital Signs and Labs
-
Vital Signs and Labs:
Vital Signs
Temp Pulse Resp BP Pulse Ox
36.7 C 85 18 130/85 97
12/20/24 07:06 12/20/24 07:06 12/20/24 07:06 12/20/24 07:06 12/20/24 08:00
Lab Results
12/20/24 06:24
12/20/24 06:24
Sodium 143 mmol/L (135-145) 12/20/24 06:24
Potassium 3.8 mmol/L (3.5-5.1) 12/20/24 06:24
BUN 16 mg/dl (9-20) 12/20/24 06:24
Glucose 88 mg/dl (70-99) 12/20/24 06:24
Calcium 9.4 mg/dl (8.4-10.2) 12/20/24 06:24
Medications
-
Medications:
Generic Name Dose Route Start Last Admin
Trade Name Freq PRN Reason Stop Dose Admin
Apixaban 5 mg 12/18/24 08:00 12/20/24 07:44
Apixaban (Eliquis) 5 Mg Tablet PO 01/15/25 07:59 5 mg
BID NURY Administration
Atorvastatin Calcium 40 mg 12/18/24 08:00 12/20/24 07:45
Atorvastatin (Lipitor) 40 Mg Tablet PO 01/15/25 07:59 40 mg
DAILY NURY Administration
Bisacodyl 10 mg 12/18/24 02:11
Bisacodyl 10 Mg Rectal Suppository RECTAL 01/15/25 02:10
[id number] PRN
constipation
Cefdinir 300 mg 12/20/24 20:00
Cefdinir 300 Mg Capsule PO 12/24/24 20:01
BID NURY
Cyanocobalamin 1,000 mcg 12/18/24 08:00 12/20/24 07:44
Cyanocobalamin 1,000 Mcg Tablet PO 01/15/25 07:59 1,000 mcg
DAILY NURY Administration
Furosemide 20 mg 12/18/24 08:00 12/20/24 07:45
Furosemide 20 Mg Tablet PO 01/15/25 07:59 20 mg
DAILY NURY Administration
Metoprolol Succinate 100 mg 12/18/24 08:00 12/20/24 07:44
Metoprolol 100 Mg Extended Release Tablet PO 01/15/25 07:59 100 mg
DAILY NURY Administration
Mirabegron 50 mg 12/18/24 08:00 12/20/24 07:45
Mirabegron Extended Release 25 Mg Tab (Non Form) PO 01/15/25 07:59 50 mg
DAILY NURY Administration
Multivitamins Therapeutic 1 tablet 12/18/24 08:00 12/20/24 07:45
Multivitamin Tablet PO 01/15/25 07:59 1 tablet
DAILY NURY Administration
Polyethylene Glycol 17 grams 12/18/24 02:11
Polyethylene Glycol Powder 17 Grams Packet PO 01/15/25 02:10
DAILYPRN PRN
constipation
Senna/Docusate Sodium 1 tablet 12/18/24 02:11
Docusate W/Senna (Divina-Colace) Tablet PO 01/15/25 02:10
BIDPRN PRN
constipation
Sodium Chloride 0 flush 12/17/24 23:00 12/19/24 11:19
Sodium Chloride 0.9% (Flush) Syringe IV 01/14/25 22:59 2 flush
PER PROTOCOL NURY Administration
Tramadol HCl 100 mg 12/18/24 02:11
Tramadol Hcl 50 Mg Tablet PO 01/15/25 02:10
Q6HPRN PRN
moderate pain
Home Medications
-
Home Medications
apixaban 5 mg tablet (Eliquis) 5 mg PO BID Blood clot prevention/tx 09/30/17
Held on 01/23/23. Instructions: Resume on 01/26/23. Resume Eliquis Thursday01/26/2023
furosemide 20 mg tablet 20 mg PO DAILY Fluid retention/Swelling 04/25/21
metoprolol succinate 50 mg tablet,extended release 24 hr 100 mg PO DAILY Blood pressure 04/25/21
simvastatin 80 mg tablet 80 mg PO DAILY High cholesterol 04/25/21
oxycodone-acetaminophen 5 mg-325 mg tablet (Percocet) 1 tab PO DAILYPRN PRN severe pain 11/14/22
tramadol 50 mg tablet 100 mg PO .Q4-6HPRN PRN moderate pain 11/14/22
eqeyazdz-fx-nqdwa 300 mcg-K 60 mcg-lycop 600 mcg-lutein 300 mcg tablet (Centrum Silver Men) 1 tab PO DAILY Supplement 12/08/22
cyanocobalamin (vitamin B-12) 1,000 mcg tablet 1,000 mcg PO DAILY Supplement 12/09/22
hydrocodone 5 mg-acetaminophen 300 mg tablet 1 - 2 tab PO Q4HPRN PRN pain 01/21/23
mirabegron 50 mg tablet,extended release 24 hr (Myrbetriq) 50 mg PO DAILY Urinary Issue 12/17/24
naproxen sodium 220 mg tablet (Aleve) 440 mg PO DAILYPRN PRN with tramadol for pain 12/17/24
--- NOTE | 2024-12-20 13:22 | PN.CDI ---
CDI
- -
CDI:
Physician Documentation Request
Admit Date: 12/19/24 11:58
Dear Doctor Nguyễn,
Clinical Indicators:
Patient admitted with UTI; PMH includes dementia.
12/17 H & P, '...this morning when he woke up, was more weak than typical, unable to get up out of bed due to weakness.'
12/17 (20:04) RN note, 'Tonight, it took 2 hours to try and get pt out of the chair, pt unable to follow commands and did not understand what she was saying to him.'
12/19 Neurology consult, 'Neurodegenerative/infectious encephalopathy'
Based on the above, could you clarify the most likely etiology of the confusion/altered mental status'
Dementia with Acute Metabolic Encephalopathy
Baseline Dementia with weakness only
Other, please specify
Use of terms such as suspected, likely, concern for, or probable (associated with a specific diagnosis that is being evaluated, monitored, or treated as if it exists) are acceptable and can be coded in the inpatient setting, when documented at the
time of discharge.
Thank you,
JIMI Cruz RN
CDI Specialist
available via tiger text
Please use your independent medical judgment in providing your response.
[2024-12-20 15:07] VITALS: BP 107/58
[2024-12-20 15:25] VITALS: BP 102/72; PULSE 78
[2024-12-20] MEDS: OMNICEF 300 MG PO (20:30)
--- NOTE | 2024-12-20 21:27 | PTCARENOTE ---
Oral care was not performed on patient because he stated that it was his preference to brush his teeth in the morning.
[2024-12-20 23:00] VITALS: BP 123/76
--- NOTE | 2024-12-21 04:29 | DOWNTIME ---
Addendum entered by Nina Guadarrama RN 12/21/24 14:14:
Correction to downtime 12/21/2024 from 0100 to 12/21/24 at 0415.
Original Note:
There was a [employer] Client [employer] Downtime on 12/20/2024 from 0100 to 12/21/2024 at 0415. Downtime documentation of patient's care, including medication administrations, has been reconciled in the electronic record per guidelines. Refer to the
patient's paper chart under the miscellaneous tab to see printed paper medication records and downtime forms.
[2024-12-21 05:35] LABS: Hematocrit 40.3 % (39.0-52.0); Hemoglobin 13.6 g/dL (13.0-18.0); Mean Corp Hgb Conc. 33.7 g/dL (33.0-37.0); Mean Corpuscular Hgb 33.3 pg (27.0-31.0); Mean Corpuscular Volume 98.5 fL (80.0-94.0); Mean Platelet Volume 9.7 fL (7.4-10.4); Platelet Count 217 10^3/uL (130-400); Red Blood Cell Count 4.09 10^6/uL (4.70-6.10); Red Cell Dist. Width 13.3 % (11.5-14.5); White Blood Cell Count 5.5 10^3/uL (4.8-10.8)
[2024-12-21 06:00] VITALS: BMI 23.5
[2024-12-21 06:12] LABS: ALT (SGPT) 27 U/L (0-50); AST (SGOT) 33 U/L (17-59); Albumin 3.2 g/dl (3.5-5.0); Alkaline Phosphatase 65 U/L (38-126); Blood Urea Nitrogen 14 mg/dl (9-20); Calcium 9.1 mg/dl (8.4-10.2); Carbon Dioxide 28 mmol/L (22-30); Chloride 108 mmol/L (98-107); Estimated Creatinine Clearance 64 ml/min; Glucose 87 mg/dl (70-99); Potassium 3.8 mmol/L (3.5-5.1); Sodium 142 mmol/L (135-145); Total Bilirubin 1.4 mg/dl (0.2-1.3); Total Protein 5.6 g/dl (6.3-8.2); eGFR > 60.00
[2024-12-21 07:30] VITALS: BP 128/90
[2024-12-21] MEDS: OMNICEF 300 MG PO ×2 (09:09→20:50)
[2024-12-21] MEDS: MYRBETRIQ EXTENDED RELEASE 50 MG PO (09:09)
[2024-12-21] MEDS: VITAMIN B-12 1000 MCG PO (09:10)
[2024-12-21] MEDS: TOPROL XL 100 MG PO (09:10)
[2024-12-21] MEDS: LASIX 20 MG PO (09:10)
[2024-12-21] MEDS: THERAGRAN 1 TABLET PO (09:10)
[2024-12-21] MEDS: LIPITOR 40 MG PO (09:10)
[2024-12-21] MEDS: ELIQUIS 5 MG PO ×2 (09:11→20:50)
--- NOTE | 2024-12-21 09:29 | W.PN.HOSP.TC ---
Today's Communication/Plan
-
Per case management, bed at [facility] will be available tomorrow
Assessment / Plan
Assessment / Plan
Physical Exam
General: Not in acute distress
Respiratory: Clear to Auscultation Bilaterally
Cardiac: S1 and S2. Irregular Rhythm
GI: Soft, Nontender and Nondistended. Positive bowel sounds.
Skin: Other (significant tissue loss over R auricle )
Neuro: Awake and Alert
Psych: Confused and Apparent Dementia
Assessment/Plan
79yo M with PMHx of dementia, Afib on Eliquis, HTN, HLD, chronic back pain brought to ED by EMS since called for ongoing urinary retention. Found significant tissue destruction of R ear that as per prelim ENT eval - might be a cancer. CT head
suggested cellulitis and R necrotizing otitis externa and 1.3 focal erosion of R mastoid with possibility of osteitis or osteomyelitis. ALso concern for UTI with urinary incontinence.
Patient is significantly demented and confused when seen on the second day after admission. As per - patient cognition and urinary incontinence started to getting progressively worse for past 6 months and on the day of admission he became
significantly weaker, so called EMS
#Possible UTI with urinary incontinence with Hx of overactive bladder
#Chronic Urinary Retention
Continue Myrbetriq
Renal ultrasound with mild chronic bilateral renal disease, mild diffuse thickening and trabeculation of the urinary bladder wall (either cystitis or chronic urinary bladder outlet obstruction).
Continue antibiotics for UTI
Urine culture with pansensitive E. coli -- previously changed Zosyn to Cefdinir
#Dementia with Acute Metabolic Encephalopathy
#Possible Left Part of Lips Droop observed on 12/19/24
-CT Head ordered with no acute changes -- ventriculomegaly slightly out of proportion to cerebral sulcal prominence; reference measurements could suggest normal pressure hydrocephalus in the proper setting.
-Appreciate neurology consult
-MRI with no acute stroke
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
has lesion for years
Vanco previously stopped. Zosyn also stopped.
ENT consult not concerned for infection, rather suspected to have basal cell carcinoma
CRP/ESR/Procalcitonin WNL
Follow-up with ENT outpatient for biopsy at which point we could consider surgical excision
Also follow-up with Dr. Jensen, a [facility] [place]
#Dementia, unspecified
#Essential HTN
#Afib, permanent -- continue Eliquis
#B12 deficiency -- continue Vitamin B12 supplementation
#Chronic back pain
cont home meds
DVT ppx SCDs. Eliquis.
DNR/DNI
Today, 12/21/24, I tried calling patient's Sariah, but she did not answer the phone.
Anticipated Discharge: Within 24 hours
Subjective/Interval History
-
Date of Service: December 21, 2024
Patient was seen and examined. He denied any new symptoms or complaints.
Objective Data
-
Labs:
Laboratory Results
12/21/24
05:06
WBC 5.5
Hgb 13.6
Hct 40.3
Plt Count 217
Sodium 142
Potassium 3.8
Chloride 108 H
Carbon Dioxide 28
BUN 14
Creatinine 1.0
Glucose 87
Calcium 9.1
Total Bilirubin 1.4 H
AST 33
ALT 27
Alkaline Phosphatase 65
Vital Signs:
Vital Signs
Temp Pulse Resp BP Pulse Ox
97.4 F 89 18 128/90 99
12/21/24 07:30 12/21/24 09:10 12/21/24 07:30 12/21/24 09:10 12/21/24 07:30
I&O
12/20/24 12/21/24 12/22/24
06:59 06:59 06:59
Intake Total 550 / 550 210 / 210
Balance 550 / 550 210 / 210
[2024-12-21 15:30] VITALS: BP 100/68
[2024-12-21 15:40] VITALS: PULSE 73; O2SAT 88
[2024-12-21 16:07] VITALS: BP 100/60
--- NOTE | 2024-12-21 16:26 | CM ---
PT OT reviewed with
Reviewed SNF that could accept patient . requested [facility] .
SPoke with Jammie Cowart she said that bed available tomorrow.
Pt requested ambulance.
[facility]
report [phone]
fax [phone]
PLAN To [facility]
[2024-12-21 23:00] VITALS: BP 123/65
[2024-12-22 06:00] VITALS: BMI 23.3
[2024-12-22 06:17] LABS: ALT (SGPT) 35 U/L (0-50); AST (SGOT) 37 U/L (17-59); Albumin 3.3 g/dl (3.5-5.0); Alkaline Phosphatase 71 U/L (38-126); Blood Urea Nitrogen 11 mg/dl (9-20); Calcium 9.1 mg/dl (8.4-10.2); Carbon Dioxide 30 mmol/L (22-30); Chloride 109 mmol/L (98-107); Estimated Creatinine Clearance 71 ml/min; Glucose 95 mg/dl (70-99); Potassium 3.7 mmol/L (3.5-5.1); Sodium 143 mmol/L (135-145); Total Bilirubin 1.2 mg/dl (0.2-1.3); Total Protein 5.8 g/dl (6.3-8.2); eGFR > 60.00
[2024-12-22 06:33] LABS: Hematocrit 42.4 % (39.0-52.0); Mean Corpuscular Hgb 32.6 pg (27.0-31.0); Mean Corpuscular Volume 98.6 fL (80.0-94.0); Mean Platelet Volume 9.7 fL (7.4-10.4); Platelet Count 261 10^3/uL (130-400); Red Cell Dist. Width 13.2 % (11.5-14.5); White Blood Cell Count 5.6 10^3/uL (4.8-10.8)
[2024-12-22 07:00] VITALS: BP 134/87
[2024-12-22] MEDS: VITAMIN B-12 1000 MCG PO (08:51)
[2024-12-22] MEDS: LASIX 20 MG PO (08:51)
[2024-12-22] MEDS: THERAGRAN 1 TABLET PO (08:51)
[2024-12-22] MEDS: ELIQUIS 5 MG PO (08:51)
[2024-12-22] MEDS: LIPITOR 40 MG PO (08:51)
[2024-12-22] MEDS: TOPROL XL 100 MG PO (08:51)
[2024-12-22] MEDS: MYRBETRIQ EXTENDED RELEASE 50 MG PO (08:51)
[2024-12-22] MEDS: OMNICEF 300 MG PO (08:52)
--- NOTE | 2024-12-22 10:18 | CM ---
PT OT reviewed with Sariah
requested [facility] .
Spoke with Jammie Cowart she said that bed available today.
Mariah requested ambulance. Medical nec form completed.
IMM reviewed and signed by
[facility]
report [phone]
fax [phone]
PLAN To [facility]
--- NOTE | 2024-12-22 11:36 | W.PN.ENT ---
Today's Communication
-
May be discharged today but should f/u with me in office. understands
Impression / Plan
-
Likely basal cell ca. i don't think there is facial nerve involvement.
Will await results.
Subjective Data
-
No complaint
Objective Data
-
Vital Signs
Temp Pulse Resp BP Pulse Ox
98.4 F 80 17 134/87 96
12/22/24 07:00 12/22/24 08:51 12/22/24 07:00 12/22/24 08:51 12/22/24 11:09
Intake & Output
12/21/24 12/22/24 12/23/24
06:59 06:59 06:59
Intake:
Oral fluids 210 / 210 960 / 960
Other:
How many times incontinent 2 4 1
SATURATED amount urine
Lab Results
12/22/24 05:08
12/22/24 05:08
Calcium 9.1 mg/dl (8.4-10.2) 12/22/24 05:08
Total Bilirubin 1.2 mg/dl (0.2-1.3) 12/22/24 05:08
AST 37 U/L (17-59) 12/22/24 05:08
ALT 35 U/L (0-50) 12/22/24 05:08
Alkaline Phosphatase 71 U/L (38-126) 12/22/24 05:08
Urine Color Yellow 12/17/24 20:23
Urine Clarity Clear (Clear) 12/17/24 20:23
Urine pH 6.0 (5.0-9.0) 12/17/24 20:23
Ur Specific [place] 1.015 (<1.030) 12/17/24 20:23
Urine Ketones Negative (Negative) 12/17/24 20:23
Physical Exam
-
Do not appreciate a relevant facial droop
Decision is made to perform biopsy because he will otherwise be going to [facility] for rehab.
After obtaining consent from patient and , the ear is cleaned and gently debrided of crusts.
He is injected with about 1 ml of 1% lido with 1:[id number] epi.
A 15 blade is used to take a sales representative aircraft shave biopsy. He tolerates it well.
--- NOTE | 2024-12-22 13:38 | W.PN.HOSP.TC ---
Today's Communication/Plan
-
Discharge today
Assessment / Plan
Assessment / Plan
Physical Exam
General: Not in acute distress
Respiratory: Clear to Auscultation Bilaterally
Cardiac: S1 and S2. Irregular Rhythm
GI: Soft, Nontender and Nondistended. Positive bowel sounds.
Skin: Other (significant tissue loss over R auricle )
Neuro: Awake and Alert
Psych: Confused and Apparent Dementia
Assessment/Plan
79yo M with PMHx of dementia, Afib on Eliquis, HTN, HLD, chronic back pain brought to ED by EMS since called for ongoing urinary retention. Found significant tissue destruction of R ear that as per prelim ENT eval - might be a cancer. CT head
suggested cellulitis and R necrotizing otitis externa and 1.3 focal erosion of R mastoid with possibility of osteitis or osteomyelitis. ALso concern for UTI with urinary incontinence.
Patient is significantly demented and confused when seen on the second day after admission. As per - patient cognition and urinary incontinence started to getting progressively worse for past 6 months and on the day of admission he became
significantly weaker, so called EMS
#Possible UTI with urinary incontinence with Hx of overactive bladder
#Chronic Urinary Retention
Continue Myrbetriq
Renal ultrasound with mild chronic bilateral renal disease, mild diffuse thickening and trabeculation of the urinary bladder wall (either cystitis or chronic urinary bladder outlet obstruction).
Continue antibiotics for UTI
Urine culture with pansensitive E. coli -- previously changed Zosyn to Cefdinir -- complete course after discharge
#Dementia with Acute Metabolic Encephalopathy
#Possible Left Part of Lips Droop observed on 12/19/24
-CT Head ordered with no acute changes -- ventriculomegaly slightly out of proportion to cerebral sulcal prominence; reference measurements could suggest normal pressure hydrocephalus in the proper setting.
-Appreciate neurology consult
-MRI with no acute stroke
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
has lesion for years
Vanco previously stopped. Zosyn also stopped.
ENT consult not concerned for infection, rather suspected to have basal cell carcinoma
CRP/ESR/Procalcitonin WNL
Follow-up with ENT outpatient -- Dr. Jarod Lund performed biopsy on 12/22/24
Also follow-up with Dr. Jensen, [place] [facility] [place]
#Dementia, unspecified
#Essential HTN
#Afib, permanent -- continue Eliquis
#B12 deficiency -- continue Vitamin B12 supplementation
#Chronic back pain
-Continue home medications
DVT Prophylaxis: SCDs. Eliquis.
Code Status: DNR/DNI
I spoke to patient's Sariah and updated her today.
More than 30 minutes spent in discharge including
Final examination of the patient
Summarizing hospital stay
Instructions for continuing care to all relevant caregivers
Preparation of discharge records, prescriptions, and referral forms
Total time spent (in minutes): 37
Anticipated Discharge: Today
Subjective/Interval History
-
Date of Service: December 22, 2024
Patient was seen and examined. No new symptoms or complaints. He was eating his lunch when he was seen.
Objective Data
-
Labs:
Laboratory Results
12/22/24
05:08
WBC 5.6
Hgb 14.0
Hct 42.4
Plt Count 261 D
Sodium 143
Potassium 3.7
Chloride 109 H
Carbon Dioxide 30
BUN 11
Creatinine 0.9
Glucose 95
Calcium 9.1
Total Bilirubin 1.2
AST 37
ALT 35
Alkaline Phosphatase 71
Vital Signs:
Vital Signs
Temp Pulse Resp BP Pulse Ox
98.4 F 80 17 134/87 96
12/22/24 07:00 12/22/24 08:51 12/22/24 07:00 12/22/24 08:51 12/22/24 11:09
I&O
12/21/24 12/22/24 12/23/24
06:59 06:59 06:59
Intake Total 210 / 210 960 / 960
Balance 210 / 210 960 / 960
[2024-12-22 14:49] VITALS: BP 115/80
== END 2024-12-22 15:39 | DRG 689 ==
LOC: 3 WEST ACU 11:58
PROVIDERS: Internal Medicine; ADMITTING PHYSICIAN Internal Medicine; ATTENDING PHYSICIAN Hospitalist; CONSULT PHYSICIAN Otolaryngology; CONSULT PHYSICIAN Psychiatry & Neurology Neurology; EMERGENCY PHYSICIAN Student in an Organized Health Care Education/Training Program; FAMILY PHYSICIAN Family Medicine
DX: N39.0 Urinary tract infection, site not specified (principal); G93.41 Metabolic encephalopathy; H60.21 Malignant otitis externa, right ear; I48.21 Permanent atrial fibrillation; C44.91 Basal cell carcinoma of skin, unspecified; I48.91 Unspecified atrial fibrillation; Z79.01 Long term (current) use of anticoagulants; Z66 Do not resuscitate; I10 Essential (primary) hypertension
CPT/HCPCS: 88305; 51701; 70450; 70481; 70553; 76770; 80053; 81003; 81015; 82962; 84145; 85025; 85027; 85652; 86140; 87070; 87077; 87086; 87186; 93005; 96365; 97116; 97167; 97530; 97535; 99285; A9575; Q9967

== ENCOUNTER → 2024-12-26 09:04 | Outpatient (REF) | payer OTHER, MEDICARE, SELFPAY ==
[2024-12-26 10:29] LABS: % Basophils 0.8 % (0-2); % Immature Granulocytes 0.3 % (0-0.5); % Lymphocytes 26.8 % (20.5-51.1); % Monocytes 9.8 % (1.7-9.3); % Neutrophils 58.3 % (42.2-75.2); Absolute Basophils 0.1 10^3/uL (0-0.2); Absolute Eosinophils 0.3 10^3/uL (0-0.7); Absolute Lymphocytes 1.8 10^3/uL (1.2-3.4); Absolute Monocytes 0.6 10^3/uL (0.1-0.6); Absolute Neutrophils 3.8 10^3/uL (1.4-6.5); Hematocrit 40.2 % (39.0-52.0); Hemoglobin 13.8 g/dL (13.0-18.0); Mean Corp Hgb Conc. 34.3 g/dL (33.0-37.0); Mean Corpuscular Hgb 33.7 pg (27.0-31.0); Mean Platelet Volume 10.7 fL (7.4-10.4); Nucleated Red Blood Cells % 0.3 % (-); Platelet Count 261 10^3/uL (130-400); White Blood Cell Count 6.6 10^3/uL (4.8-10.8)
[2024-12-26 16:42] LABS: Blood Urea Nitrogen 15 mg/dl (9-20); Calcium 9.2 mg/dl (8.4-10.2); Carbon Dioxide 20 mmol/L (22-30); Chloride 112 mmol/L (98-107); Glucose 76 mg/dl (70-99); Potassium 4.8 mmol/L (3.5-5.1); Sodium 138 mmol/L (135-145); eGFR > 60.00
== END ==
LOC: OLABP 09:04
PROVIDERS: ATTENDING PHYSICIAN Family Medicine
DX: G93.41 Metabolic encephalopathy (principal); N39.0 Urinary tract infection, site not specified; I48.21 Permanent atrial fibrillation; G30.9 Alzheimer's disease, unspecified; N40.0 Benign prostatic hyperplasia without lower urinary tract symptoms; M54.16 Radiculopathy, lumbar region; E78.5 Hyperlipidemia, unspecified; C44.212 Basal cell carcinoma of skin of right ear and external auricular canal; H60.21 Malignant otitis externa, right ear; I10 Essential (primary) hypertension
CPT/HCPCS: 36415; 80048; 85025

== ENCOUNTER 2025-02-28 09:31 | Inpatient (IN) | payer MEDICARE, OTHER, SELFPAY ==
[2025-02-27] VITALS (7 sets, daily range): BP systolic 118–137; BP diastolic 69–124; BMI 26.1
[2025-02-27 18:49] LABS: Hematocrit 37.0 % (39.0-52.0); Hemoglobin 12.3 g/dL (13.0-18.0); Mean Corp Hgb Conc. 33.2 g/dL (33.0-37.0); Mean Corpuscular Volume 97.9 fL (80.0-94.0); Nucleated Red Blood Cells % 0 % (-); Platelet Count 257 10^3/uL (130-400); Red Cell Dist. Width 14.0 % (11.5-14.5)
--- NOTE | 2025-02-27 19:04 | ED.GENMED ---
History of Present Illness
General
Chief Complaint: Fall
Source: ambulance crew
Time Seen by Provider: 02/27/25 18:21
History of Present Illness
History of Present Illness:
79-year-old male with past medical history of severe dementia, hypertension, hyperlipidemia, atrial fibrillation, urinary tract infection and reported skin cancer presenting to the emergency department from home after had called due to patient
falling out of his recliner, EMS placed the patient back into his bed but then fell out of bed prompting them to bring patient to the ER. Per EMS states patient seems to be at his mental baseline. Patient is denying any pain to me. History
was otherwise unable to be obtained from the patient as he does not even remember falling. EMS did state patient may be getting treated for skin cancer. 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
left ear with bony extension but it is unclear as to if patient is undergoing active treatment.
Past History
Past History
ED Past Medical History: Arrthythmia (Atrial fib), Cancer, HTN, Hypercholesterolemia and Other (Chronic back pain, hypertension, hyperlipidemia, spinal stenosis,)
ED Past Surgical History: Orthopedic (Multiple back surgeries)
Social History
Tobacco: Non-smoker
Alcohol: Daily (bourbon 2 shots)
Drug: None
Personal:
Living: with family
Family History
Family History: Negative Diabetes, Hypertension or Early CAD
Review of Systems
Review of Systems
All Other Systems: ROS reviewed and negative except as documented in HPI and ROS
Phy Exam
Physical Exam
Physical Exam:
GENERAL: Alert , in no apparent distress
HEAD: Normocephalic atraumatic
EYE: Clear conjunctiva
NECK: Supple
ENT: o/p clr, mmm.
CARDIAC: Irregularly irregular but rate controlled
LUNGS: Clear breath sounds bilaterally, no acute respiratory distress, no wheezes/rales/rhonchi
ABDOMEN: Soft, without focal tenderness, no r/g, no cvat
NEUROLOGICAL: Alert and oriented to place and self but not time, moves all extremities
SKIN: Warm and dry, skin intact.
MUSCULOSKELETAL: No edema, dusky skin the bilateral lower extremities. No focal tenderness upper or lower extremity bilateral
PSYCH: Normal and appropriate interaction.
Scores
Heart Failure Risk
Heart Failure Risk Score: Not Applicable
Heart Score for Chest Pain Patients
STEMI patient?: Not applicable
Withdrawal Assessment of Alcohol
Withdrawal Assessment Completed?: Not applicable
Course
Orders/Labs/Results
Orders:
Orders
02/27/25 18:25
EKG [Electrocardiogram (*1)] Urgent
Reason for Study: Fatigue / Weakness
02/27/25 18:26
EKG- Treatment ONCE
02/27/25 18:27
CT Head W/o Iv Contrast Urgent
Comment:
Reason For Exam: multiple falls, weakness
CR Chest Portable - 1 View Urgent
Comment:
Reason For Exam: falls, weakness
Reason Study Needs to be Portable: Unable to Transport
02/27/25 18:41
Complete Blood Count/With Diff Urgent
Comprehensive Metabolic Panel Urgent
02/27/25 18:55
Urinalysis Reflex To Culture Urgent
Date Specimen was Collected: 02/27/25
Time Specimen was Collected: 18:41
Urine Microscopic Reflex Cult Urgent
Urine Culture Urgent
PARRISH Source: U
Specimen Description:
Date Specimen was Collected: 02/27/25
Time Specimen was Collected: 18:41
02/27/25 20:08
CefTRIAXone [Rocephin] 1,000 mg IV NOW STA
02/27/25 20:40
Sterile Water [Sterile Water For Injection] 10 ml .ROUTE .[facility]
02/27/25 21:50
Admit/Transfer Patient As Directed
Co-Sign Provider:
Level of Care: Observation services
Assign to:: Medical/Surgical
Physician / Group: Shad
Diagnosis: Weakness, UTI
PRN Pain Medication Management As Directed
May give lesser potent ordered pain med per pt: Yes
preference::
Protocol:: Medication orders for pain may be administered in a
manner that supports deferring to patient preference
when the pt is:
- Requesting an ordered lesser potent pain medication.
Least to most potent pain medications are defined
as: acetaminophen < NSAID < tramadol < opioids
(morphine, oxycodone, hydromorphone).
- Requesting a lesser dose of the same medication IF
ORDERED.
- Requesting a less intrusive route of administration
if both routes are prescribed by the provider (PO <
IV).
02/27/25 21:54
Code Status As Directed
Resuscitation Status: Do not resuscitate
Reached after discussion with pt or family/Healthcare POA: Yes
DNR Bracelet Application ONCE
Abnormal Lab Results
02/27/25 02/27/25
18:41 18:55
RBC 3.78 L 10^6/uL
(4.70-6.10)
Hgb 12.3 L g/dL
(13.0-18.0)
Hct 37.0 L %
(39.0-52.0)
MCV 97.9 H fL
(80.0-94.0)
MCH 32.5 H pg
(27.0-31.0)
Absolute Monos (auto) 0.7 H 10^3/uL
(0.1-0.6)
Lymphocytes % 19.1 L %
(20.5-51.1)
Glucose 102 H mg/dl
(70-99)
ALT 53 H U/L
(0-50)
Total Protein 6.1 L g/dl
(6.3-8.2)
Ur Occult Blood Reflex 1+ A
(Negative)
Leukocyte Esterase Rfl 1+ A
(Negative)
Urine WBC (Reflex) 11-15 A /HPF
(0-5)
Urine Bacteria (Reflex) Many A
(Negative)
02/27/25 18:41
02/27/25 18:41
Vital Signs
Initial and Last Documented VS:
Initial Vital Signs
BP
118/78
02/27/25 18:25
Last Documented Vital Signs
Temp Pulse Resp BP Pulse Ox
98.3 F 82 15 137/124 96
02/27/25 18:48 02/27/25 21:15 02/27/25 21:15 02/27/25 21:00 02/27/25 21:15
MDM/Problems Addressed
Differential Diagnosis Includes:
Dementia
Urinary tract infection
CVA
Electrolyte imbalance
Dehydration
Anemia
Intracranial bleeding
MDM/Problems Addressed:
79-year-old male with past medical history of dementia presenting to the ER for evaluation after he experienced 2 separate falls today, no obvious trauma on exam. Patient is reportedly at his baseline. Given he is in atrial fibrillation
possibility for CVA is considered especially given patient is not anticoagulated but there is no focal deficits presently. It appears patient was admitted in December for urinary tract infection so possibility of this is also present. Will obtain
labs, urine, head CT. Anticipate admission as per EMS patient's feels her care for the patient safely.
Chronic conditions affecting care: Arrhythmia and Other (Dementia)
*Pulse Oximetry
SaO2: 98
Oxygen Mode of Delivery: Room air
Patient hypoxic: no
*EKG
Comparison EKG: no comparison EKG present
Heart Rate: 67
Rate: normal
Rhythm: a-fib
Porum: left axis deviation
QRS Pattern: right bundle branch block
*Public Speaking Teacher Interpretation
Rate: normal
Heart Rate: 68
Rhythm: a-fib
*Critical Care Note
Total Time (30-74mins, 75-104mins- exclusive of procedures): Not Applicable
Data Reviewed
Review of Other/Old Records Reveals: Labs, Records and Discharge Summary
Source: patient and records
Patient Management
Discussion with other providers: Hospitalist
Escalation/DeEscalation of care consider admission/obs:
Patient's urine suggestive of urinary tract infection, based off previous urine culture we will treat with Rocephin IV. Head CT is negative for any intracranial pathologies. Given his reported weakness with multiple falls today and 's
inability to care for the patient at home will admit for continued antibiotics and ultimately patient may need senior living facility or halfway for continued daily care. Patient may require case management consultation. Hospitalist team
accepts for continued evaluation and treatment.
ED Attending Note
-
Portions of this chart may have been created with voice recognition software.� Occasional wrong word or��sound alike� substitutions may have occurred due to the inherent limitations of voice recognition software.
Discharge Plan
Departure
Patient Disposition: Admit
Date of Disposition: 02/27/25
Time of Disposition: 21:17
Presentation/result/management discussed w/ accepting MD/DO: Hospitalist
Discharge Problem:
Acute UTI, Generalized weakness
Interventions
Interventions:
*Risk Screen - Suicide Last Done: 02/27/25 18:32
*General Assessment Last Done: 02/27/25 18:32
*Neglect/Abuse Screening Last Done: 02/27/25 18:32
*ED- Fall Risk Assessment Last Done: 02/27/25 18:32
*ED COVID-19 Vaccine History Last Done: 02/27/25 18:32
ED-Musculoskeletal Assessment Last Done: 02/27/25 18:49
ED- Neurological Assessment Last Done: 02/27/25 18:49
ED-Skin Assessment Last Done: 02/27/25 18:49
[2025-02-27 19:12] LABS: ALT (SGPT) 53 U/L (0-50); AST (SGOT) 45 U/L (17-59); Albumin 3.7 g/dl (3.5-5.0); Alkaline Phosphatase 118 U/L (38-126); Blood Urea Nitrogen 20 mg/dl (9-20); Calcium 8.9 mg/dl (8.4-10.2); Carbon Dioxide 27 mmol/L (22-30); Chloride 106 mmol/L (98-107); Estimated Creatinine Clearance 60 ml/min; Glucose 102 mg/dl (70-99); Potassium 4.2 mmol/L (3.5-5.1); Sodium 138 mmol/L (135-145); Total Protein 6.1 g/dl (6.3-8.2); eGFR > 60.00
[2025-02-27 19:28] LABS: Urine Character Slightly Cloudy (Clear)
[2025-02-27 20:04] LABS: Urine Red Blood Cell 0-2 /HPF (0-2); Urine Squamous Cell 0-2 /LPF (Few)
[2025-02-27] MEDS: ROCEPHIN 1000 MG IV (20:43)
--- NOTE | 2025-02-27 21:33 | HPS.HSE ---
Addendum entered and electronically signed by Tone Kulkarni DO 02/27/25 23:10:
Patient seen and examined independently. Agree with findings and plan as set forth by Kasandra Saucedo PA-C.
Patient is an 79y M with PMH significant for A-Fib, hypertension and dementia who presents to ED from home due to increased weakness / gait dysfunction. Patient was recently discharged to home from SNF after prior hospital stay. Per , he
has gradually been declining since return home. No specific / focal complaints. No fall / injury. No fevers / chills. Patient denies any cough, N/V/D or urinary complaints.
Ass:
Generalized Weakness
Possible UTI
Permanent Atrial Fibrillation
Benign Hypertension
OAB
Invasive Basal Cell CA Right Pinna
Plan:
Observe overnight for further evaluation and treatment.
Continue IV abx for now pending culture data. No clinical symptoms to suggest UTI.
? more generalized functional decline.
PT / OT evals.
Continue usual home medications.
Original Note:
Family Physician
-
Family Physician: Jr Mcintosh
Chief Complaint
-
Weakness
History of Present Illness
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 Additional
history obtained from patient's at the bedside. Patient slid out of chair earlier today. EMS was called to help get him up. They attempted to get him into bed but he slid out of bed again prompting them to bring him to the emergency
department for evaluation. Other than generalized weakness patient denies any specific complaints.
Medical History
Past Medical History
Past Medical History: Reports Other
Additional Past Medical History:
Permanent Atrial Fibrillation
Essential Hypertension
Hyperlipidemia
Alzheimer's Dementia
Overactive Bladder
Invasive Basal Cell Carcinoma of Right Ear
Past Surgical History: Reports Other
Additional Past Surgical History:
Multiple Spinal Surgeries
Left Inguinal Hernia Repair with Mesh
Social History
Tobacco: Non-smoker
Personal:
Living: With Family
Family History
Family History: Not pertinent
Allergies / Home Medications
Allergies reflects when Allergies were last updated in [facility].
Home Medications with original date entered in [facility]
Allergy/Medication List:
Allergies
Allergy/AdvReac Type Severity Reaction Status Date / Time
No Known Allergies Allergy Unverified 02/27/25 19:42
Home Medications
apixaban 5 mg tablet (Eliquis) 5 mg PO BID Blood clot prevention/tx 09/30/17
furosemide 20 mg tablet 20 mg PO DAILY Fluid retention/Swelling 04/25/21
metoprolol succinate 50 mg tablet,extended release 24 hr 100 mg PO DAILY Blood pressure 04/25/21
cyanocobalamin (vitamin B-12) 1,000 mcg tablet 1,000 mcg PO DAILY Supplement 12/09/22
mirabegron 50 mg tablet,extended release 24 hr (Myrbetriq) 50 mg PO DAILY Urinary Issue 12/17/24
simvastatin 80 mg tablet 80 mg PO DAILY 02/27/25
therapeutic multivitamin 1 tab PO DAILY 02/27/25
vismodegib 150 mg capsule (Erivedge) 150 mg PO DAILY 02/27/25
Review of Systems
-
Unable to obtain full review of systems at this time due to: Dementia
Physical Exam
Vital Signs
Vital Signs
Temp Pulse Resp BP Pulse Ox
98.3 F 82 15 137/124 96
02/27/25 18:48 02/27/25 21:15 02/27/25 21:15 02/27/25 21:00 02/27/25 21:15
Physical Exam
General: Comfortable and Conversant
HEENT: Anicteric, Moist mucous membranes and Other (Right ear deformity)
Respiratory: Clear and Non Labored Respirations
Cardiac: S1/S2 and Irregular Rhythm; No Tachycardia
GI: Soft and Non Tender
Musculoskeletal: No Clubbing, No Cyanosis and No Edema
Skin: Warm and Dry
Neuro: Awake, Alert and Nonfocal/grossly intact
Psych: Calm
Laboratory Results
-
02/27/25 18:41
02/27/25 18:41
Laboratory Results
Total Bilirubin 0.9 mg/dl (0.2-1.3) 02/27/25 18:41
AST 45 U/L (17-59) 02/27/25 18:41
ALT 53 U/L (0-50) H 02/27/25 18:41
Alkaline Phosphatase 118 U/L (38-126) 02/27/25 18:41
Data Reviewed
-
Lab Data: Labs Reviewed by me
Impression/Plan
-
Urinary Tract Infection
-Continue ceftriaxone
-Await urine culture
Generalized Weakness
-Continue PT/OT
Permanent Atrial Fibrillation
-Continue Eliquis for anticoagulation
-Continue metoprolol for rate control
Essential Hypertension
-Continue metoprolol
Hyperlipidemia
-Continue simvastatin
Overactive Bladder
-Continue Myrbetriq for now - Consider stopping if patient develops recurrent UTIs
Invasive Basal Cell Carcinoma of Right Ear
-Patient maintained on vismodegib
DVT proph: Eliquis
Code Status: DNR
[2025-02-28] VITALS (22 sets, daily range): BP systolic 91–178; BP diastolic 58–102; PULSE 68–69; BMI 25.8; BMI 26.1
[2025-02-28 06:11] LABS: Hematocrit 38.9 % (39.0-52.0); Hemoglobin 12.9 g/dL (13.0-18.0); Mean Corp Hgb Conc. 33.2 g/dL (33.0-37.0); Mean Corpuscular Volume 99.0 fL (80.0-94.0); Platelet Count 262 10^3/uL (130-400); Red Cell Dist. Width 13.9 % (11.5-14.5)
[2025-02-28 06:47] LABS: ALT (SGPT) 49 U/L (0-50); AST (SGOT) 38 U/L (17-59); Albumin 3.6 g/dl (3.5-5.0); Alkaline Phosphatase 125 U/L (38-126); Blood Urea Nitrogen 16 mg/dl (9-20); Calcium 9.2 mg/dl (8.4-10.2); Carbon Dioxide 29 mmol/L (22-30); Chloride 106 mmol/L (98-107); Estimated Creatinine Clearance 66 ml/min; Glucose 90 mg/dl (70-99); Potassium 4.1 mmol/L (3.5-5.1); Sodium 140 mmol/L (135-145); Total Protein 5.9 g/dl (6.3-8.2); eGFR > 60.00
[2025-02-28] MEDS: ELIQUIS 5 MG PO ×2 (08:50→20:59)
[2025-02-28] MEDS: LASIX 20 MG PO (08:50)
[2025-02-28] MEDS: LIPITOR 40 MG PO (08:50)
--- NOTE | 2025-02-28 09:09 | W.PN.HOSP.TC ---
Today's Communication/Plan
-
see outlined plan
Assessment / Plan
Assessment / Plan
Assessment:
UTI
- continue Rocephin, day 1 pending cultures
Generalized Weakness
- continue PT/OT
Permanent Atrial Fibrillation
- continue Eliquis for anticoagulation
- hold metoprolol with noted bradycardia and pause of 4 secs on tele; consult Cardiology
Essential Hypertension
- hold metoprolol as above
Hyperlipidemia
- continue simvastatin
Overactive Bladder
- continue Myrbetriq for now - Consider stopping if patient develops recurrent UTIs
Invasive Basal Cell Carcinoma of Right Ear
- Patient maintained on vismodegib
- OP ENT f/u and OP Derm f/u
Suspected dementia
- MRI: Moderate diffuse parenchymal volume loss, most prominent involving the medial temporal and frontoparietal lobes. Axial FLAIR sequence demonstrates mild hyperintensity within the periventricular and deep subcortical white matter, likely
related to chronic small vessel ischemic changes.
- OP evaluation
DVT ppx: Eliquis
Code Status: DNR/DNI
Anticipated Discharge: > 48 hours
Subjective/Interval History
-
Date of Service: February 28, 2025
resting comfortably, no complaints
Objective Data
-
Labs:
Laboratory Results
02/28/25
05:49
WBC 6.6
Hgb 12.9 L
Hct 38.9 L
Plt Count 262
Sodium 140
Potassium 4.1
Chloride 106
Carbon Dioxide 29
BUN 16
Creatinine 0.9
Glucose 90
Calcium 9.2
Total Bilirubin 1.3
AST 38
ALT 49
Alkaline Phosphatase 125
Vital Signs:
Vital Signs
Temp Pulse Resp BP Pulse Ox
98.3 F 70 18 120/80 96
02/27/25 18:48 02/28/25 03:00 02/28/25 03:00 02/28/25 03:00 02/28/25 03:00
I&O
02/27/25 02/28/25 03/01/25
06:59 06:59 06:59
Output Total 300 / 300
Balance -300 / -300
Physical Exam
-
General: No Apparent Distress
HEENT: Normocephalic and Atraumatic
Respiratory: Negative Wheezes
Cardiac: Irregular Rhythm
GI: Soft
Neuro: AO x 3
Psych: Calm
Data Reviewed
-
Total Time Spent with Patient (in minutes): 41
Labs: Labs Reviewed by me
[2025-02-28] MEDS: MYRBETRIQ EXTENDED RELEASE 50 MG PO (10:40)
--- NOTE | 2025-02-28 13:39 | CM ---
CM reviewed chart and met with pt's bedside in ED. Pt lives with his in 2 story home, 2 RAI, has stairglide to second floor BR and full BA. Needs assistance with ADLs and personal care. Ambulates with RW, also has cane and wheelchair.
Currently receiving home PT/OT from [facility], they come twice a week.
Pt's does not feel she can care for him at home anymore, she is primary caregiver. She feels his dementia is becoming much to manage by herself. One son lives in [place] and provides some support, other son lives in [place].
I gave her a list of AL facilities in the area, also discussed memory care and LTC. Is interested in SNF at discharge with possible transition to LTC.
PCP: Jr Mcintosh
Pharmacy: [facility] after hospital stay in December.
CM will continue to follow for all discharge planning needs.
[2025-02-28] MEDS: NON-FORMULARY ITEM 150 MG PO (14:42)
--- NOTE | 2025-02-28 14:56 | CON.CAR ---
Addendum entered and electronically signed by Ramon Roman DO 02/28/25 17:31:
I saw and examined the patient.
The [employer]oma Pharmacy Technician's note was reviewed and I agree with the note.
Comment:
Patient presenting with fall and admitted with urinary tract infection. Patient noted to have a 4-second pause on front desk monitor at 7 AM this morning. It is possible this occurred during sleep however, no clear documentation on this episode.
Patient A&O x 1 (self only) and cannot recall experiencing any symptoms associated with this pause. Patient denies any symptoms at this current juncture. EKG and media monitor demonstrates rate controlled atrial fibrillation with right bundle
branch block. No further episodes of pauses. No evidence of hemodynamic instability.
A/P as below.
Previously seen in office by Dr Frank Will
Continue to treat underlying causes of confusion/infection/weakness
Stroke risk reduction with OAC
Ok to hold beta-mecca and monitor response for now; consider re-introduction at lower dose for rate control on DC or in office
TTE
Monitor on telemetry
Original Note:
Consultation
Consultation Request
Date/Time Consultation Requested: 02/28/2025
Date/Time Consultation Performed: 02/28/2025
Requesting Provider: Dr. Saab
Performing Provider: Dr. Roman
Reason for Consultation: Permanent A-fib, bradycardia
Medical History
-
History of Present Illness:
Patient came to the hospital after a fall at home and was admitted with a UTI and cardiology is consulted after bradycardia seen on the monitor this morning. Patient lives at home with his and apparently fell out of his recliner at home. In
the ER there was concern for UTI. Patient was admitted and while on telemetry monitoring was noticed to be bradycardic at times with pauses up to 4 seconds, but this may have been while sleeping. Patient has known permanent A-fib and is on rate
control therapy with Toprol-XL 100 mg daily. Patient is also chronically on Eliquis 0.5 mg twice daily. No recent outpatient monitoring. Patient was last seen in the office on 11/28/2022 for clearance for hernia repair surgery at that time he was
advised to reduce alcohol intake and to continue on Toprol-XL and Eliquis.
PMH:
Chronic Eliquis OAC
HTN
Hyperlipidemia
Past Medical History
Past Medical History: Other (In HPI)
Past Surgical History: Orthopedic
Social History
Tobacco: Non-Smoker
Alcohol: Occasional
Drug: None
Personal:
Living: With Family
Family History
Family History: Hypertension
Allergies / Home Medications
Allergy/AdvReac Type Severity Reaction Status Date / Time
No Known Allergies Allergy Unverified 02/27/25 19:42
�Medication �Instructions �Recorded �Confirmed �Type
apixaban 5 mg tablet (Eliquis) 5 mg PO BID Blood clot 09/30/17 02/27/25 History
prevention/tx
furosemide 20 mg tablet 20 mg PO DAILY Fluid 04/25/21 02/27/25 History
retention/Swelling
metoprolol succinate 50 mg 100 mg PO DAILY Blood pressure 04/25/21 02/27/25 History
tablet,extended release 24 hr
cyanocobalamin (vitamin B-12) 1,000 mcg PO DAILY Supplement 12/09/22 02/27/25 History
1,000 mcg tablet
mirabegron 50 mg tablet,extended 50 mg PO DAILY Urinary Issue 12/17/24 02/27/25 History
release 24 hr (Myrbetriq)
simvastatin 80 mg tablet 80 mg PO DAILY 02/27/25 02/27/25 History
therapeutic multivitamin 1 tab PO DAILY 02/27/25 02/27/25 History
vismodegib 150 mg capsule 150 mg PO DAILY 02/27/25 02/27/25 History
(Erivedge)
Review of Systems
-
History Source: Patient
All other systems: Negative unless noted
Physical Exam
Vital Signs
Temp Pulse Resp BP Pulse Ox
97.4 F 71 19 127/76 99
02/28/25 09:31 02/28/25 12:15 02/28/25 12:15 02/28/25 12:13 02/28/25 08:45
GEN: NAD. AAO to self
HEENT: EOMI, MMM
LUNGS: RA. No audible wheeze
CV: Afib on tele. Irreg irreg, S1/S2, 07/11 syst LSB
ABD: ND
EXT: No clubbing, cyanosis, lesions or edema B/L
NEURO: Gross non-focal
SKIN: No rash
Lab Results
02/28/25 05:49
02/28/25 05:49
Impression / Plan
-
PCP: Dr. Jr Mcintosh
Cardiology: Dr. Segovia
Impression:
Admitted with generalized weakness and UTI 02/27/2025
UTI
Bradycardia
Permanent A-fib
Chronic Eliquis OAC
HTN
Hyperlipidemia
Echo 07/23/2019: EF 50 to 55%, mild to moderate eccentric MR
Plan:
-Patient came to the hospital after a fall at home and was admitted with a UTI and cardiology is consulted after bradycardia seen on the monitor this morning. Patient lives at home with his and apparently fell out of his recliner at home. In
the ER there was concern for UTI. Patient was admitted and while on telemetry monitoring was noticed to be bradycardic at times with pauses up to 4 seconds, but this may have been while sleeping. Patient has known permanent A-fib and is on rate
control therapy with Toprol-XL 100 mg daily. Patient is also chronically on Eliquis 0.5 mg twice daily. No recent outpatient monitoring. Patient was last seen in the office on 11/28/2022 for clearance for hernia repair surgery at that time he was
advised to reduce alcohol intake and to continue on Toprol-XL and Eliquis.
-ECG reviewed by me is A-fib with controlled ventricular response
-Telemetry reviewed by me shows overall controlled ventricular response without significant pauses aside from the almost 4-second pause seen on telemetry 02/28/2025 in the early a.m.
-Outpatient dose of Toprol-XL 100 mg daily is now on hold and pending telemetry review in the morning we will restart Toprol-XL at 25 mg daily for rate control efforts
-Outpatient dose of Eliquis 5 mg twice daily should be continued
-Check echo, patient had mild to moderate eccentric MR by last echo 07/23/2019
-Sleep study was recommended back in 2019, not clear if it was ever completed and this could be an explanation for the pause that was seen as well, but not clear that at age 79 the patient will be amenable or agreeable to SONIA treatment if it is found
-Case management note reviewed and patient's feels as though she can no longer care for patient at home. They are looking into placement in assisted living at time of discharge.
[2025-02-28] MEDS: STERILE WATER FOR INJECTION 10 ML IV (16:10)
[2025-02-28] MEDS: ROCEPHIN 1000 MG IV (16:10)
--- NOTE | 2025-02-28 17:18 | PTCARENOTE ---
Received pt from ED at 1500. Pt was a kiln puller from stretcher to bed. VS taken, assessment completed, connected to tele box #17. Pt with multiple attempts to remove tele box and IV. Cross coverage hospitalist texted for b/l mitt restraints ordered.
No current complaints. Plan of care ongoing.
[2025-03-01 03:00] VITALS: BP 121/71
[2025-03-01 06:51] LABS: Hematocrit 40.6 % (39.0-52.0); Hemoglobin 13.6 g/dL (13.0-18.0); Mean Corp Hgb Conc. 33.5 g/dL (33.0-37.0); Mean Corpuscular Volume 97.8 fL (80.0-94.0); Platelet Count 256 10^3/uL (130-400); Red Cell Dist. Width 13.5 % (11.5-14.5)
[2025-03-01 07:12] LABS: Blood Urea Nitrogen 15 mg/dl (9-20); Calcium 9.1 mg/dl (8.4-10.2); Carbon Dioxide 29 mmol/L (22-30); Chloride 105 mmol/L (98-107); Estimated Creatinine Clearance 75 ml/min; Glucose 91 mg/dl (70-99); Potassium 4.3 mmol/L (3.5-5.1); Sodium 138 mmol/L (135-145); eGFR > 60.00
[2025-03-01 07:51] VITALS: BP 107/58
[2025-03-01] MEDS: LIPITOR 40 MG PO (09:42)
[2025-03-01] MEDS: MYRBETRIQ EXTENDED RELEASE 50 MG PO (09:42)
[2025-03-01] MEDS: ELIQUIS 5 MG PO ×2 (09:42→20:16)
[2025-03-01] MEDS: NON-FORMULARY ITEM 1 MG PO (09:43)
[2025-03-01] MEDS: LASIX 20 MG PO (09:43)
--- NOTE | 2025-03-01 11:13 | W.PN.HOSP.TC ---
Today's Communication/Plan
-
continue UTI tx
re-consider resuming BB per Cardiology
Assessment / Plan
Assessment / Plan
Assessment:
gram negative UTI
- continue Rocephin, day 2 pending cultures
Generalized Weakness
- continue PT/OT - SNF
Permanent Atrial Fibrillation
- continue Eliquis for anticoagulation
- metoprolol was held with noted bradycardia and pause of 4 secs on tele
- Cardiology following
Essential Hypertension
- hold metoprolol as above
Hyperlipidemia
- continue simvastatin
Overactive Bladder
- continue Myrbetriq for now - Consider stopping if patient develops recurrent UTIs
Invasive Basal Cell Carcinoma of Right Ear
- Patient maintained on vismodegib
- OP ENT f/u and OP Derm f/u
Suspected dementia
- MRI: Moderate diffuse parenchymal volume loss, most prominent involving the medial temporal and frontoparietal lobes. Axial FLAIR sequence demonstrates mild hyperintensity within the periventricular and deep subcortical white matter, likely
related to chronic small vessel ischemic changes.
- OP evaluation
DVT ppx: Eliquis
Code Status: DNR/DNI
Anticipated Discharge: 24 - 48 hours
Subjective/Interval History
-
Date of Service: March 01, 2025
resting comfortably, no complaints at present
Objective Data
-
Labs:
Laboratory Results
03/01/25
06:24
WBC 6.4
Hgb 13.6
Hct 40.6
Plt Count 256
Sodium 138
Potassium 4.3
Chloride 105
Carbon Dioxide 29
BUN 15
Creatinine 0.8
Glucose 91
Calcium 9.1
Vital Signs:
Vital Signs
Temp Pulse Resp BP Pulse Ox
97.9 F 82 16 107/58 98
03/01/25 07:51 03/01/25 07:51 03/01/25 07:51 03/01/25 07:51 03/01/25 07:51
I&O
02/28/25 03/01/25 03/02/25
06:59 06:59 06:59
Output Total 300 / 300
Balance -300 / -300
Physical Exam
-
General: No Apparent Distress
HEENT: Normocephalic and Atraumatic
Respiratory: Negative Wheezes
Cardiac: Regular Rhythm and S1/S2
GI: Soft and Nontender
Musculoskeletal: No Edema
Neuro: AO x 3
Psych: Calm
Data Reviewed
-
Total Time Spent with Patient (in minutes): 41
Labs: Labs Reviewed by me
[2025-03-01 11:24] VITALS: BP 136/78
[2025-03-01] MEDS: TOPROL XL 25 MG PO (12:19)
--- NOTE | 2025-03-01 13:28 | CM ---
Met with patient
PT rec SNF
spoke with -referrals entered in careport
no preauth
PLAN: snf, pending bed availability when stable
--- NOTE | 2025-03-01 14:19 | PTCARENOTE ---
pt with multiple attempts to take off tele device and removed IV site. Order for b/l mitts ordered due to needing both IV site and tele monitoring, no current complaints, patient tolerating well. Plan of care ongoing.
--- NOTE | 2025-03-01 15:21 | PN.CDI ---
CDI
- -
CDI:
Physician Documentation Request
Admit Date: 02/28/25 09:31
Dear Doctor Katiana,
Please review the following and provide your response in the progress notes.
Clinical Indicators:
Selected Entries
02/28/25
15:36
Pressure injury stage [Present on admission Right Posterior Buttock] Stage 2
Physician documentation of the type and location of wounds is required for compliant documentation. Based on the above clinical findings and your assessment, please provide the following in your progress note:
Yes, right posterior buttock, stage 2 pressure injury, POA
No, right posterior buttock, stage 2 pressure injury
Other, (please injury)
1. Location of the ulcer/wound, including laterality.
2. Type (etiology) of ulcer/wound:
- Diabetic ulcer
- Arterial (ischemic) ulcer
- Traumatic wound
- Venous stasis ulcer
- Pressure (decubitus) ulcer
3. For a pressure ulcer, please also include the stage* of the ulcer:
- Stage 1 - Skin intact, non-blanchable redness
- Stage 2 - Partial thickness loss of dermis, includes intact or open blister
- Stage 3 - Full thickness tissue not including bone, tendon or muscle
- Stage 4 - Full thickness tissue loss, including exposed bone, tendon or muscle
- Unstageable - Full thickness loss in which the base of the ulcer is covered by slough (yellow, johnson, veloz, green or brown) and/or eschar (johnson, brown or black) in the wound bed.
- Unable to determine
Use of terms such as suspected, likely, concern for, or probable (associated with a specific diagnosis that is being evaluated, monitored, or treated as if it exists) are acceptable and can be coded in the inpatient setting, when documented at the
time of discharge.
Thank you,
Radha Antony RN BSN CCDS
CDI Specialist
Please contact via tiger text
Please use your independent medical judgment in providing your response.
*Source: National Pressure Ulcer Advisory Panel (NPUAP)
[2025-03-01] MEDS: STERILE WATER FOR INJECTION 10 ML IV (15:43)
[2025-03-01] MEDS: ROCEPHIN 1000 MG IV (15:43)
[2025-03-01 15:51] VITALS: BP 143/96
--- NOTE | 2025-03-01 17:17 | W.PN.CARDCBS ---
Addendum entered and electronically signed by Cecil May MD 03/01/25 17:35:
I saw and examined the patient.
The Proposal Lead Writer's note was reviewed and I agree with the note.
Comment:
GEN: No distress, awake, Ox3
HEENT: supple, anicteric, mmm
LUNGS: CTA, no wheezes/rales
CV: Irreg, S1/S2, 1/6 syst LSB, no gallop
ABD: soft, BS+, NT/ND
EXT: No edema
NEURO: Gross non-focal
SKIN: No rash
PLan:
No further significant pauses. Still having some episodes of bradycardia at night. Will restart low-dose Toprol 25 mg daily as he does have permanent atrial fibrillation.
Continue Eliquis 5 mg p.o. twice daily.
Continue oral Lasix.
Continue antibiotics for UTI
Original Note:
Today's Communication / Plan
-
Restarted Toprol-XL 25 mg daily
Impression / Plan
-
PCP: Dr. Jr Mcintosh
Cardiology: Dr. Segovia
Impression:
Admitted with generalized weakness and UTI 02/27/2025
UTI
Bradycardia
Permanent A-fib
Chronic Eliquis OAC
HTN
Hyperlipidemia
Echo 07/23/2019: EF 50 to 55%, mild to moderate eccentric MR
Echo 03/01/2025: EF 55 to 60%, RV mildly dilated with normal function, mild posterior mitral valve leaflet prolapse with eccentric moderate MR and mild MAC, moderate TR with PAP 28 mmHg
Plan:
-Telemetry reviewed by me, patient remains in A-fib which is permanent. HR has increased and no significant pauses 03/01/2025
-Outpatient dose of Toprol-XL 100 mg daily has been decreased to 25 mg daily starting 03/01/2025, orders changed by me
-Outpatient dose of Eliquis 5 mg twice daily should be continued
-Echo report reviewed and summarized above by me on 03/01/2025. MR is worse compared to echo from 2019, no specific intervention at this time. Toprol-XL restarted as noted above
-Sleep study was recommended back in 2019, not clear if it was ever completed and this could be an explanation for the pause that was seen as well, but not clear that at age 79 the patient will be amenable or agreeable to SONIA treatment if it is found
-Case management note reviewed and patient's feels as though she can no longer care for patient at home. They are looking into placement in assisted living at time of discharge.
HPI: Patient came to the hospital after a fall at home and was admitted with a UTI and cardiology is consulted after bradycardia seen on the monitor this morning. Patient lives at home with his and apparently fell out of his recliner at home.
In the ER there was concern for UTI. Patient was admitted and while on telemetry monitoring was noticed to be bradycardic at times with pauses up to 4 seconds, but this may have been while sleeping. Patient has known permanent A-fib and is on rate
control therapy with Toprol-XL 100 mg daily. Patient is also chronically on Eliquis 0.5 mg twice daily. No recent outpatient monitoring. Patient was last seen in the office on 11/28/2022 for clearance for hernia repair surgery at that time he was
advised to reduce alcohol intake and to continue on Toprol-XL and Eliquis.
Progress Note - Research Environmental Engineer
Subjective
Date of Service: March 01, 2025
No chest pain
Objective
Labs:
03/01/25 06:24
03/01/25 06:24
Labs
Hgb 13.6 g/dL (13.0-18.0) 03/01/25 06:24
Hct 40.6 % (39.0-52.0) 03/01/25 06:24
Plt Count 256 10^3/uL (130-400) 03/01/25 06:24
Sodium 138 mmol/L (135-145) 03/01/25 06:24
Potassium 4.3 mmol/L (3.5-5.1) 03/01/25 06:24
BUN 15 mg/dl (9-20) 03/01/25 06:24
Creatinine 0.8 mg/dL (0.7-1.3) 03/01/25 06:24
Glucose 91 mg/dl (70-99) 03/01/25 06:24
Vital Signs and I&O:
Vital Signs
Temp Pulse Resp BP Pulse Ox
97.9 F 76 14 143/96 99
03/01/25 15:51 03/01/25 15:51 03/01/25 15:51 03/01/25 15:51 03/01/25 15:51
Vital Signs
Temp Pulse Resp BP Pulse Ox
97.9 F 76 14 143/96 99
03/01/25 15:51 03/01/25 15:51 03/01/25 15:51 03/01/25 15:51 03/01/25 15:51
Intake & Output
02/27/25 02/28/25 03/01/25 03/02/25
06:59 06:59 06:59 06:59
Output Total 300 / 300
Balance -300 / -300
Physical Exam
Physical Exam
GEN: NAD. AAO to self
LUNGS: RA. No audible wheeze
CV: Afib on tele.
[2025-03-01 19:00] VITALS: BP 123/78
[2025-03-01 23:00] VITALS: BP 135/88
[2025-03-02 03:00] VITALS: BP 134/86
[2025-03-02 06:00] VITALS: BMI 25.3
[2025-03-02 07:35] LABS: Hematocrit 40.1 % (39.0-52.0); Hemoglobin 13.5 g/dL (13.0-18.0); Mean Corp Hgb Conc. 33.7 g/dL (33.0-37.0); Mean Corpuscular Volume 97.6 fL (80.0-94.0); Platelet Count 296 10^3/uL (130-400); Red Cell Dist. Width 13.4 % (11.5-14.5)
[2025-03-02 07:46] LABS: Blood Urea Nitrogen 15 mg/dl (9-20); Calcium 9.3 mg/dl (8.4-10.2); Carbon Dioxide 29 mmol/L (22-30); Chloride 103 mmol/L (98-107); Estimated Creatinine Clearance 75 ml/min; Glucose 88 mg/dl (70-99); Potassium 4.0 mmol/L (3.5-5.1); Sodium 136 mmol/L (135-145); eGFR > 60.00
[2025-03-02 07:51] VITALS: BP 140/85
--- NOTE | 2025-03-02 08:10 | W.PN.HOSP.TC ---
Today's Communication/Plan
-
oral abx
continue lower dose metoprolol
dc planning to SNF
Assessment / Plan
Assessment / Plan
Assessment:
Proteus Mirabilis UTI, mult-drug resistant
- s/p 3 days Rocephin. transition to Cefdinir x 7 days further to complete 10 day course
Generalized Weakness
- continue PT/OT - SNF being explored
Permanent Atrial Fibrillation
- continue Eliquis for anticoagulation
- Metoprolol resumed at 25mg daily; no pauses on tele with this dose
- Cardiology signed off
Essential Hypertension
- Metoprolol resumed at 25mg daily
Hyperlipidemia
- continue simvastatin
Overactive Bladder
- continue Myrbetriq for now - Consider stopping if patient develops recurrent UTIs
Invasive Basal Cell Carcinoma of Right Ear
- Patient maintained on vismodegib
- OP ENT f/u and OP Derm f/u
Suspected dementia
- MRI: Moderate diffuse parenchymal volume loss, most prominent involving the medial temporal and frontoparietal lobes. Axial FLAIR sequence demonstrates mild hyperintensity within the periventricular and deep subcortical white matter, likely
related to chronic small vessel ischemic changes.
- OP evaluation
right posterior buttock, stage 2 pressure injury, POA
- wound care evaluation
DVT ppx: Eliquis
Code Status: DNR/DNI
Anticipated Discharge: Within 24 hours
Subjective/Interval History
-
Date of Service: March 02, 2025
denies any new complaints
Objective Data
-
Labs:
Laboratory Results
03/02/25
06:53
WBC 6.9
Hgb 13.5
Hct 40.1
Plt Count 296
Sodium 136
Potassium 4.0
Chloride 103
Carbon Dioxide 29
BUN 15
Creatinine 0.8
Glucose 88
Calcium 9.3
Vital Signs:
Vital Signs
Temp Pulse Resp BP Pulse Ox
97.4 F 86 14 140/85 95
03/02/25 07:51 03/02/25 07:51 03/02/25 07:51 03/02/25 07:51 03/02/25 07:51
I&O
03/01/25 03/02/25 03/03/25
06:59 06:59 06:59
Intake Total 120 / 120
Balance 120 / 120
Physical Exam
-
General: No Apparent Distress
HEENT: Normocephalic and Atraumatic
Respiratory: Clear to Auscultation
Cardiac: Irregular Rhythm
GI: Soft and Nontender
Neuro: AO x 3
Psych: Calm
Data Reviewed
-
Total Time Spent with Patient (in minutes): 41
Labs: Labs Reviewed by me
[2025-03-02] MEDS: LIPITOR 40 MG PO (09:00)
[2025-03-02] MEDS: ELIQUIS 5 MG PO ×2 (09:01→19:50)
[2025-03-02] MEDS: MYRBETRIQ EXTENDED RELEASE 50 MG PO (09:01)
[2025-03-02] MEDS: LASIX 20 MG PO (09:04)
[2025-03-02] MEDS: TOPROL XL 25 MG PO (09:05)
[2025-03-02] MEDS: NON-FORMULARY ITEM 150 MG PO (09:05)
--- NOTE | 2025-03-02 10:03 | W.PN.CARDCBS ---
Addendum entered and electronically signed by Frank Will MD 03/02/25 10:20:
83-year-old man admitted with fall possibly related to underlying urinary tract infection and found to have 4-second pause in the setting of permanent atrial fibrillation. Metoprolol held, restarted yesterday at 25 mg daily.
PMH: Permanent atrial fibrillation, hypertension, hyperlipidemia, presumed underlying dementia, invasive basal cell cancer of the ear on Vismodegib (hedgehog pathway inhibitor)
Current meds: Apixaban 5 mg twice daily, Vismodegib, furosemide 20 mg a day, Myrbetriq, atorvastatin 40 mg a day, ceftriaxone, metoprolol ER 25 mg a day
140/85, pulse 86, respiratory rate 14, weight 80 kg, down 1.4 kg, 2.5 kg since admission, complaining of back pain, hands in mitts, lungs are relatively clear, irregular rate and rhythm, soft systolic murmur at apex, abdomen benign, patient very
rigid, when asked the date he gives his birthday, grossly nonfocal. Incontinent of urine.
Echo 02/2025: EF 55-60%, dilated RV and right atrium with preserved function, dilated left atrium, posterior leaflet prolapse with moderate eccentric mitral regurgitation and mitral annular calcification, moderate TR, pulmonary artery pressure 28 mmHg
ECG: Atrial fibrillation, right bundle branch block, left axis, PVC versus aberrant ventricular conduction, borderline low voltage
Telemetry: Rate well-controlled, no pauses
Impression:
Permanent atrial fibrillation with pauses, heart rate now well-controlled on low-dose metoprolol
UTI
Hypertension
Probable underlying dementia
Invasive basal cell cancer of the ear
Hypercholesterolemia
Moderate MR, moderate TR
Right bundle branch block
Degenerative disc disease
Plan:
His rate is now controlled in atrial fibrillation with reduction in metoprolol. No further pauses.
He is chronically on Lasix with moderate MR does not have a diagnosis of HFpEF. Currently no evidence of heart failure, will not pursue further given his comorbidities.
He remains anticoagulated.
Blood pressure is acceptable.
We will sign off, he can follow-up to his primary care physician and return to cardiology as needed.
Original Note:
Today's Communication / Plan
-
cont Toprol 25 mg daily and Eliquis 5 mg bid for perm afib
Impression / Plan
-
PCP: Dr. Jr Mcintosh
Cardiology: Dr. Segovia
Impression:
Admitted with generalized weakness and UTI 02/27/2025
UTI
Bradycardia
Permanent A-fib
Chronic Eliquis OAC
HTN
Hyperlipidemia
Echo 07/23/2019: EF 50 to 55%, mild to moderate eccentric MR
Echo 03/01/2025: EF 55 to 60%, RV mildly dilated with normal function, mild posterior mitral valve leaflet prolapse with eccentric moderate MR and mild MAC, moderate TR with PAP 28 mmHg
Plan:
-Toprol resumed 03/01/2025 at lower dose of 25 mg daily (previously on 100 mg daily)
-Telemetry reviewed by me, patient remains in A-fib which is permanent. Heart rates 60s to 70s. No significant pauses 03/02/2025
-Outpatient dose of Eliquis 5 mg twice daily should be continued
-Echo report reviewed and summarized above by me on 03/01/2025. MR is worse compared to echo from 2019, no specific intervention at this time. Toprol-XL restarted as noted above
-Sleep study was recommended back in 2019, not clear if it was ever completed and this could be an explanation for the pause that was seen as well, but not clear that at age 79 the patient will be amenable or agreeable to SONIA treatment if it is found
-Case management note reviewed and patient's feels as though she can no longer care for patient at home. They are looking into placement in assisted living at time of discharge.
HPI: Patient came to the hospital after a fall at home and was admitted with a UTI and cardiology is consulted after bradycardia seen on the monitor this morning. Patient lives at home with his and apparently fell out of his recliner at home.
In the ER there was concern for UTI. Patient was admitted and while on telemetry monitoring was noticed to be bradycardic at times with pauses up to 4 seconds, but this may have been while sleeping. Patient has known permanent A-fib and is on rate
control therapy with Toprol-XL 100 mg daily. Patient is also chronically on Eliquis 0.5 mg twice daily. No recent outpatient monitoring. Patient was last seen in the office on 11/28/2022 for clearance for hernia repair surgery at that time he was
advised to reduce alcohol intake and to continue on Toprol-XL and Eliquis.
Progress Note - Medical Records Coordinator
Subjective
Date of Service: March 02, 2025
Back on Toprol at lower dose 25 mg daily. Telemetry without pauses or significant bradycardia. Remains in permanent atrial fibrillation
denies dizziness, SOB, CP
Objective
Labs:
03/02/25 06:53
03/02/25 06:53
Labs
Hgb 13.5 g/dL (13.0-18.0) 03/02/25 06:53
Hct 40.1 % (39.0-52.0) 03/02/25 06:53
Plt Count 296 10^3/uL (130-400) 03/02/25 06:53
Sodium 136 mmol/L (135-145) 03/02/25 06:53
Potassium 4.0 mmol/L (3.5-5.1) 03/02/25 06:53
BUN 15 mg/dl (9-20) 03/02/25 06:53
Creatinine 0.8 mg/dL (0.7-1.3) 03/02/25 06:53
Glucose 88 mg/dl (70-99) 03/02/25 06:53
Vital Signs and I&O:
Vital Signs
Temp Pulse Resp BP Pulse Ox
97.4 F 87 14 132/84 95
03/02/25 07:51 03/02/25 09:04 03/02/25 07:51 03/02/25 09:04 03/02/25 07:51
Vital Signs
Temp Pulse Resp BP Pulse Ox
97.4 F 87 14 132/84 95
03/02/25 07:51 03/02/25 09:04 03/02/25 07:51 03/02/25 09:04 03/02/25 07:51
Intake & Output
02/28/25 03/01/25 03/02/25 03/03/25
06:59 06:59 06:59 06:59
Intake Total 120 / 120
Output Total 300 / 300
Balance -300 / -300 120 / 120
Physical Exam
Physical Exam
GEN: No distress, awake, Ox3
HEENT: supple, anicteric, mmm
LUNGS:BS decreased bases
CV: irreg, irreg S1/S2, 1/6 syst LSB, apex
ABD: soft, BS+, NT/ND
EXT: No edema
NEURO: Gross non-focal
SKIN: No rash
--- NOTE | 2025-03-02 10:10 | CM ---
Addendum entered by Evelin Aguila 03/02/25 12:37:
met with patient
Bed available at [facility] on THURSDAY-tt hospitalist
Let know she will need to bring VISMODEGIB to the facility, she said she will bring to facility
IMM explained. On chart
PLAN: [facility] SNF, Sat 03/04
Report #: [phone]
Fax #: [phone]
transportation forms on chart
Original Note:
Information faxed to [facility] as patient requested she would like him to go there after SNF stay
Spoke with Ling Cabral & faxed clinicals [phone]
PT rec SNF - accepted by Sergio Hui & [facility] - would like [facility] SNF
spoke with Zoraida at [facility] bed available tomorrow
tt hospitalist
PLAN: [facility] SNF when stable
--- NOTE | 2025-03-02 10:18 | WOUNDNOTE ---
WO RN NOTE: Reviewed chart and met with patient. Patient found restrained due to to trying to pull out IV overnight. Buttocks with what appears to be some scaring and some small open areas likely related to pressure and moisture. Heels are intact.
Will recommend Calazime for buttocks with incontinence care, condom cath and air bed. This video game script writer called [facility] for air bed. MICHAEL Lopez made aware of plan and will transfer patient to air bed shortly. Will sign off.
[2025-03-02 10:52] VITALS: BP 125/81
[2025-03-02] MEDS: OMNICEF 300 MG PO ×2 (11:23→19:50)
[2025-03-02 15:07] VITALS: BP 111/73
[2025-03-02 16:03] VITALS: BP 114/73; PULSE 89; O2SAT 94
[2025-03-02 23:22] VITALS: BP 141/86
[2025-03-03 05:03] VITALS: BMI 24.8
[2025-03-03 07:00] VITALS: BP 126/84
[2025-03-03 07:19] LABS: Hematocrit 40.1 % (39.0-52.0); Hemoglobin 13.6 g/dL (13.0-18.0); Mean Corp Hgb Conc. 33.9 g/dL (33.0-37.0); Mean Corpuscular Volume 96.9 fL (80.0-94.0); Platelet Count 293 10^3/uL (130-400); Red Cell Dist. Width 13.4 % (11.5-14.5)
[2025-03-03 07:52] LABS: Blood Urea Nitrogen 15 mg/dl (9-20); Calcium 9.2 mg/dl (8.4-10.2); Carbon Dioxide 30 mmol/L (22-30); Chloride 104 mmol/L (98-107); Estimated Creatinine Clearance 75 ml/min; Glucose 99 mg/dl (70-99); Potassium 4.1 mmol/L (3.5-5.1); Sodium 137 mmol/L (135-145); eGFR > 60.00
[2025-03-03] MEDS: LASIX 20 MG PO (08:14)
[2025-03-03] MEDS: TOPROL XL 25 MG PO (08:14)
[2025-03-03] MEDS: OMNICEF 300 MG PO ×2 (08:14→20:42)
[2025-03-03] MEDS: ELIQUIS 5 MG PO ×2 (08:14→20:43)
[2025-03-03] MEDS: LIPITOR 40 MG PO (08:14)
[2025-03-03] MEDS: MYRBETRIQ EXTENDED RELEASE 50 MG PO (08:14)
[2025-03-03] MEDS: NON-FORMULARY ITEM 150 MG PO (08:15)
--- NOTE | 2025-03-03 11:33 | CM ---
Patient accepted to [facility] SNF - bed available Thursday
agreeable
remind she will need to bring VISMODEGIB medication to the facility, she said she will bring to facility
PLAN: [facility], Sat 03/04
Report #: [phone]
Fax #: [phone]
transportation forms on chart
--- NOTE | 2025-03-03 13:10 | W.PN.HOSP.TC ---
Today's Communication/Plan
-
To SNF in 24 hours when bed available. CM aware.
Assessment / Plan
Assessment / Plan
Assessment:
Proteus Mirabilis UTI, mult-drug resistant
- s/p 3 days Rocephin. transition to Cefdinir, day 10/13 overall
Generalized Weakness
- continue PT/OT - SNF bed available in 24 hours per CM
Permanent Atrial Fibrillation
- continue Eliquis for anticoagulation
- Metoprolol resumed at 25mg daily; no pauses on tele with this dose
- Cardiology signed off
Essential Hypertension
- Metoprolol resumed at 25mg daily
Hyperlipidemia
- continue simvastatin
Overactive Bladder
- continue Myrbetriq for now - Consider stopping if patient develops recurrent UTIs
Invasive Basal Cell Carcinoma of Right Ear
- Patient maintained on vismodegib
- OP ENT f/u and OP Derm f/u
Suspected dementia
- MRI: Moderate diffuse parenchymal volume loss, most prominent involving the medial temporal and frontoparietal lobes. Axial FLAIR sequence demonstrates mild hyperintensity within the periventricular and deep subcortical white matter, likely
related to chronic small vessel ischemic changes.
- OP evaluation
right posterior buttock, stage 2 pressure injury, POA
- wound care evaluation
DVT ppx: Eliquis
Code Status: DNR/DNI
Dispo: To SNF in 24 hours when bed available. CM aware.
Anticipated Discharge: Within 24 hours
Subjective/Interval History
-
Date of Service: March 03, 2025
resting comfortably, no complaints
Objective Data
-
Labs:
Laboratory Results
03/03/25
06:57
WBC 7.0
Hgb 13.6
Hct 40.1
Plt Count 293
Sodium 137
Potassium 4.1
Chloride 104
Carbon Dioxide 30
BUN 15
Creatinine 0.8
Glucose 99
Calcium 9.2
Vital Signs:
Vital Signs
Temp Pulse Resp BP Pulse Ox
98.4 F 81 17 126/84 97
03/03/25 07:00 03/03/25 08:14 03/03/25 07:00 03/03/25 08:14 03/03/25 07:00
I&O
03/02/25 03/03/25 03/04/25
06:59 06:59 06:59
Intake Total 120 / 120 480 / 480
Balance 120 / 120 480 / 480
Physical Exam
-
General: No Apparent Distress
HEENT: Normocephalic and Atraumatic
Respiratory: Negative Wheezes
Cardiac: Regular Rhythm and S1/S2
GI: Soft and Nontender
Genito-urinary: No Costovertebral Tender
Neuro: AO x 3
Psych: Calm
Data Reviewed
-
Total Time Spent with Patient (in minutes): 42
Labs: Labs Reviewed by me
[2025-03-03 13:35] VITALS: BP 104/79; PULSE 83
[2025-03-03 14:08] VITALS: BP 104/97; PULSE 83
[2025-03-03 15:00] VITALS: BP 126/77
[2025-03-04 02:31] VITALS: BP 124/76
[2025-03-04 07:00] VITALS: BP 112/89
[2025-03-04] MEDS: LASIX 20 MG PO (08:38)
[2025-03-04] MEDS: ELIQUIS 5 MG PO (08:38)
[2025-03-04] MEDS: LIPITOR 40 MG PO (08:38)
[2025-03-04] MEDS: OMNICEF 300 MG PO (08:38)
[2025-03-04] MEDS: MYRBETRIQ EXTENDED RELEASE 50 MG PO (08:38)
[2025-03-04] MEDS: TOPROL XL 25 MG PO (08:38)
[2025-03-04] MEDS: NON-FORMULARY ITEM 150 MG PO (08:39)
--- NOTE | 2025-03-04 12:19 | W.PN.HOSP.TC ---
Today's Communication/Plan
-
dc to SNF
Assessment / Plan
Assessment / Plan
Assessment:
Proteus Mirabilis UTI, mult-drug resistant
- s/p 3 days Rocephin. transition to Cefdinir, day 5 overall
Generalized Weakness
- continue PT/OT - SNF bed available today
Permanent Atrial Fibrillation
- continue Eliquis for anticoagulation
- Metoprolol resumed at 25mg daily; no pauses on tele with this dose
- Cardiology signed off
Essential Hypertension
- Metoprolol resumed at 25mg daily
Hyperlipidemia
- continue simvastatin
Overactive Bladder
- continue Myrbetriq for now - Consider stopping if patient develops recurrent UTIs
Invasive Basal Cell Carcinoma of Right Ear
- Patient maintained on vismodegib
- OP ENT f/u and OP Derm f/u
Suspected dementia
- MRI: Moderate diffuse parenchymal volume loss, most prominent involving the medial temporal and frontoparietal lobes. Axial FLAIR sequence demonstrates mild hyperintensity within the periventricular and deep subcortical white matter, likely
related to chronic small vessel ischemic changes.
- OP evaluation
right posterior buttock, stage 2 pressure injury, POA
- wound care evaluation
DVT ppx: Eliquis
Code Status: DNR/DNI
Dispo: To SNF today.
More than 30 minutes spent in discharge including
Final examination of the patient
Summarizing hospital stay
Instructions for continuing care to all relevant caregivers
Preparation of discharge records, prescriptions, and referral forms
Total time spent (in minutes): 41
Anticipated Discharge: Today
Subjective/Interval History
-
Date of Service: March 04, 2025
resting comfortably, no complaints
Objective Data
-
Vital Signs:
Vital Signs
Temp Pulse Resp BP Pulse Ox
97.7 F 79 18 112/89 98
03/04/25 07:00 03/04/25 08:38 03/04/25 07:00 03/04/25 08:38 03/04/25 07:00
I&O
03/03/25 03/04/25 03/05/25
06:59 06:59 06:59
Intake Total 480 / 480 600 / 600
Balance 480 / 480 600 / 600
Physical Exam
-
General: No Apparent Distress
HEENT: Normocephalic and Atraumatic
Respiratory: Negative Wheezes
Cardiac: Irregular Rhythm
GI: Soft and Nontender
Neuro: AO x 3
Psych: Calm
Data Reviewed
-
Total Time Spent with Patient (in minutes): 41
Labs: Labs Reviewed by me
--- NOTE | 2025-03-04 12:20 | W.DCSUMMARY ---
Discharge Summary
Discharge Data
Date of Admission: 02/28/25
Date of Discharge: 03/04/25
-
Pending Results: No
Hospital Course
79 y/o M, history of HLD, HTN, recent diagnosis of invasive BCC of Right ear, permanent Afib presented to ER on 02/27 with weakness. He was found to have bradycardia with a 4 second pause on tele - metoprolol was stopped. Cardiology was consulted and
later reintroduced Metoprolol at 25mg (previously 100mg) with no bradycardia or pauses. Patient also was found to have proteus UTI and will complete a 10 day course of Cefdinir. He was discharged to SNF on 03/04/25.
Discharge Plan
-
Patient Disposition: Senior Care/SNF
Discharge Diagnosis/Procedures: UTI, bradycardia with pause
Condition: Fair
Diet: Regular
Activity: As tolerated
Other Services: PT and OT
Activity Restrictions/Additional Instructions:
Wound Care Instructions Buttocks- Calazime to open areas PRN with incontinence care
Air mattress
Condom Cath
Turning Schedule
Keep heels off-loaded with pillow or air cushion under calves.
Referrals:
Jr Mcintosh Jr., DO [Family Provider, [facility]] - in one week
Prescriptions:
New
metoprolol succinate 25 mg Tablet Extended Release 24 Hr
25 mg PO DAILY Qty: 30 0RF
cefdinir 300 mg Capsule
300 mg PO Q12 Qty: 12 0RF
Continued
Eliquis 5 MG tablet
5 mg PO BID
furosemide 20 MG tablet
20 mg PO DAILY
cyanocobalamin (vitamin B-12) 1,000 MCG tablet
1,000 mcg PO DAILY
mirabegron [Myrbetriq] 50 mg Tablet Extended Release 24 Hr
50 mg PO DAILY
therapeutic multivitamin Tablet
1 tab PO DAILY
simvastatin 80 mg Tablet
80 mg PO DAILY
Erivedge 150 mg Capsule
150 mg PO DAILY
Discontinued
metoprolol succinate 50 MG tablet extended release 24 hr
100 mg PO DAILY
Discharge Orders:
Discharge Patient (As Directed); Ordered 03/04/25
Ordered By: Jose De Jesus Saab
Discharge Date and Time
Print Language: TOGOLESE
[2025-03-04 13:10] VITALS: BP 115/61
--- NOTE | 2025-03-04 14:52 | CM ---
MD entered order for discharge.
is with patient . Reviewed IMM and she agrees with discharge.
Pt is to go to [facility]
LM with [facility] [place] [facility]. RN called report . Pt accepted.
Medic nec forms completed.
[facility]
Report #: [phone]
Fax #: [phone]
PLAN [facility]
== END 2025-03-04 14:19 | DRG 690 ==
LOC: 3 WEST ACU 09:31
PROVIDERS: Physician Assistant Medical; ADMITTING PHYSICIAN Hospitalist; ATTENDING PHYSICIAN Internal Medicine; EMERGENCY PHYSICIAN Emergency Medicine; FAMILY PHYSICIAN Family Medicine; OTHER PHYSICIAN Physician Assistant Medical
DX: N39.0 Urinary tract infection, site not specified (principal); I48.21 Permanent atrial fibrillation; Z16.24 Resistance to multiple antibiotics; B96.4 Proteus (mirabilis) (morganii) as the cause of diseases classified elsewhere; Z66 Do not resuscitate; R00.1 Bradycardia, unspecified; C44.212 Basal cell carcinoma of skin of right ear and external auricular canal; E78.00 Pure hypercholesterolemia, unspecified; F02.C0 Dementia in other diseases classified elsewhere, severe, without behavioral disturbance, psychotic disturbance, mood disturbance, and anxiety; G30.9 Alzheimer's disease, unspecified; G47.33 Obstructive sleep apnea (adult) (pediatric); I10 Essential (primary) hypertension; I25.10 Atherosclerotic heart disease of native coronary artery without angina pectoris; I45.10 Unspecified right bundle-branch block; N32.81 Overactive bladder; R29.6 Repeated falls; L89.312 Pressure ulcer of right buttock, stage 2; R53.1 Weakness; Z79.01 Long term (current) use of anticoagulants; Z79.899 Other long term (current) drug therapy
CPT/HCPCS: 70450; 71045; 80048; 80053; 81003; 81015; 84443; 85025; 85027; 87077; 87086; 87186; 93005; 93306; 97530; 97535